=== PATIENT | female | born 1955 | race Caucasian/White ===

== ENCOUNTER 2018-07-27 05:25 | Day surgery (SDC) | payer BC ==
[2018-07-25 13:05] LABS: APPEARANCE,URINE CLEAR; BILIRUBIN,URINE NEGATIVE (NEGATIVE); COLOR,URINE YELLOW; GLUCOSE, URINE NEGATIVE (NEGATIVE); KETONES,URINE NEGATIVE (NEGATIVE); LEUKOCYTE ESTERASE,URINE TRACE (NEGATIVE); NITRITE,URINE NEGATIVE (NEGATIVE); PROTEIN,URINE NEGATIVE (NEGATIVE); URINE SPECIFIC GRAVITY 1.011; UROBILINOGEN,URINE NEGATIVE mg/dL (<2.0)
--- NOTE | 2018-07-25 13:14 | RADIOLOGY REPORT (SQ) ---
EXAM DESCRIPTION: CHEST PA/LATERAL COMPLETED DATE/TIME: 07/25/2018 12:31 pm REASON FOR STUDY: PRE-OP COMPARISON: None. TECHNIQUE: Frontal and lateral radiographic views of the chest acquired. NUMBER OF VIEWS: Two view. LIMITATIONS: None. FINDINGS: LUNGS AND PLEURA: No opacities, masses or pneumothorax. No pleural effusion. MEDIASTINUM AND HILAR STRUCTURES: No masses or contour abnormalities. HEART AND VASCULAR STRUCTURES: Heart normal size. No evidence for failure. BONES: No acute findings. HARDWARE: None in the chest. OTHER: No other significant finding. IMPRESSION: NO SIGNIFICANT RADIOGRAPHIC FINDING IN THE CHEST. TECHNICAL DOCUMENTATION: JOB ID: [id number] [employer]- All Rights Reserved Reading location - IP/workstation name: [email or web address]
[2018-07-25 13:19] LABS: HEMATOCRIT 43.7 % (36.0-47.0); HEMOGLOBIN 14.9 g/dL (12.0-15.5); MEAN CORPUSCULAR HEMOGLOBIN 28.9 pg (27.0-33.4); MEAN CORPUSCULAR VOLUME 85 fl (80-97); PLATELET COUNT 205 10^3/uL (150-450); RED BLOOD COUNT 5.16 10^6/uL (3.72-5.28); WHITE BLOOD COUNT 6.5 10^3/uL (4.0-10.5)
[2018-07-25 13:38] LABS: ANION GAP 8 (5-19); BLOOD UREA NITROGEN 16 mg/dL (7-20); CALCIUM 9.7 mg/dL (8.4-10.2); CARBON DIOXIDE 32 mmol/L (22-30); CHLORIDE 100 mmol/L (98-107); GLUCOSE 82 mg/dL (75-110); POTASSIUM 4.9 mmol/L (3.6-5.0); SODIUM 140.3 mmol/L (137-145)
--- NOTE | 2018-07-25 23:31 | EKG REPORT ---
SEVERITY:- NORMAL ECG - SINUS RHYTHM : Confirmed by: Noah Corley 25-Jul-2018 23:31:06
[~2018-07-27 05:25] MED LIST: CEFAZOLIN 1 GM/D5W RTU 1 GM/50 ML RTUPB IV ONE; CEFAZOLIN 1 GM/D5W RTU 1 GM/50 ML RTUPB IV PRN; LACTATED RINGERS 1000 ML IV PRN; LIDOCAINE 0.5% INJ-PF (5 MG/ML) 50 ML SDV SUBCUT PRN
[2018-07-27] MEDS ORDERED: ACETAMINOPHEN 1,000 MG/100 ML RTUPB IV ONE (07:07)
[2018-07-27] MEDS ORDERED: MIDAZOLAM 2 MG/2 ML INJ ONE (07:07)
[2018-07-27] MEDS ORDERED: DEXAMETHASONE SOD PHOSPHATE INJ 4 MG/1 ML VIAL ONE (07:07)
[2018-07-27] MEDS ORDERED: LIDOCAINE 2% INJ-PF (100 MG/5 ML) SYRINGE ONE (07:07)
[2018-07-27] MEDS ORDERED: FENTANYL CITRATE INJ/PF 100 MCG/2 ML AMPUL ONE (07:07)
[2018-07-27] MEDS ORDERED: ONDANSETRON HCL INJ/PF 4 MG/2 ML SDV ONE (07:07)
[2018-07-27] MEDS ORDERED: PROPOFOL INJ 200 MG/20 ML VIAL IV ONE (07:07)
[2018-07-27] MEDS ORDERED: LIDOCAINE 1% INJ-PF (10 MG/ML) 30 ML SDV ONE (07:28)
[2018-07-27] MEDS ORDERED: PROMETHAZINE HCL INJ 25 MG/1 ML VIAL IV PRN ×2 (07:44)
[2018-07-27] MEDS ORDERED: MEPERIDINE HCL/PF INJ 25 MG/1 ML DISP.SYRIN IV PRN (07:44)
[2018-07-27] MEDS ORDERED: ONDANSETRON HCL INJ/PF 4 MG/2 ML SDV IV PRN (07:44)
[2018-07-27] MEDS ORDERED: OXYCODONE-ACETAMINOPHEN 5-325 MG TABLET PO PRN ×2 (07:44→08:30)
[2018-07-27] MEDS ORDERED: DIPHENHYDRAMINE HCL 50 MG/ML VIAL IV PRN (07:44)
[2018-07-27] MEDS ORDERED: FENTANYL CITRATE INJ/PF 100 MCG/2 ML AMPUL IV PRN ×3 (07:44)
--- NOTE | 2018-07-27 08:18 | OPERATIVE REPORT E ---
Operative Report NAME: JATIN RANDALL : 1955 AGE: 62Y DATE OF SURGERY: 07/27/2018 ROOM: PREOPERATIVE DIAGNOSIS: Endometrial atypia, postmenopausal bleeding. POSTOPERATIVE DIAGNOSIS: Endometrial atypia, postmenopausal bleeding. OPERATION: Hysteroscopy, D and C, cervical biopsy. SURGEON: JAVIER VO M.D. ANESTHESIA: LMAC, paracervical block. COMPLICATIONS: None. FINDINGS: That of an exam compounded by obesity. Cervix was difficult to visualize. Paracervical block placed. Friable-appearing cervix was encountered. Normal endometrial cavity was encountered. No polyps or endometrial lesions were noted. No adnexal masses were discerned by EUA but exam was limited by size. The usual risks of bleeding, infection, anesthesia, and damage to the organs and tissues have been discussed and the patient understood. INDICATIONS FOR PROCEDURE: The patient had atypia noted on endometrial biopsy but it was attempted as an outpatient. A scant amount of material was obtained during the rather difficult exam so she elected to proceed to hysteroscopy. PROCEDURE: The patient was taken to the operating room and placed in the modified lithotomy position after adequate anesthesia ascertained, prepped and draped in the usual manner for a hysteroscopy. With great difficulty the cervix was identified. Paracervical block placed. Single-tooth tenaculum placed on the anterior lip of the cervix. Cervix was identified blindly and dilated to admit the operative hysteroscope. Hysteroscopy ensued. Normal cavity was encountered. Endometrial sampling was performed via suction device in a random fashion and cervical biopsies performed x3. No lesions noted in the cervix. No polyps were noted. At completion of procedure all sponge and needle counts were correct. The patient was taken to recovery in stable condition. Bleeding was nil. DICTATING PHYSICIAN: JAVIER VO M.D. [id number] PHY#: [id number] ID: [id number] JOB#: [id number] ACCT: [id number] cc:JAVIER VO M.D. >
[2018-07-27] MEDS ORDERED: MORPHINE INJ 4 MG DOSE (EDIT ROUTE) INJ PRN (08:30)
[2018-07-27] MEDS ORDERED: PROMETHAZINE HCL INJ 25 MG/1 ML VIAL IM PRN (08:30)
[2018-07-27 09:33] VITALS: BP 168/89
[2018-07-27] MEDS ORDERED: IBUPROFEN 800 MG TABLET PO SCH (14:00)
== END 2018-07-27 09:05 | disposition home or self-care (01) ==
LOC: OROUT 05:25 → EDBD 07:15 → OROUT 09:05
PROVIDERS: ATTEND Specialist
DX: C53.9 Malignant neoplasm of cervix uteri, unspecified (principal); C54.1 Malignant neoplasm of endometrium; N95.0 Postmenopausal bleeding; I10 Essential (primary) hypertension; E78.00 Pure hypercholesterolemia, unspecified; Z79.899 Other long term (current) drug therapy; Z79.82 Long term (current) use of aspirin; E66.9 Obesity, unspecified; Z68.41 Body mass index [BMI] 40.0-44.9, adult
CPT/HCPCS: 93005; 86900; 86901; 36415; 86850; 85027; 80048; 81001; 88342 ×2; 88341 ×2; 88305 ×2; 71046; 93010; 58558; J2250; J0690; J1100; J3010; J3490; J2001; J2405; J2704; J0131; 952

== ENCOUNTER 2018-09-19 09:56 | Day surgery (SDC) | payer BC ==
[~2018-09-19 09:56] MED LIST changes: +ACETAMINOPHEN 325 MG TABLET PO PRN; +DEXAMETHASONE SOD PHOSPHATE INJ 4 MG/1 ML VIAL ONE; +FENTANYL CITRATE INJ/PF 100 MCG/2 ML AMPUL ONE; -LACTATED RINGERS 1000 ML IV PRN; -LIDOCAINE 0.5% INJ-PF (5 MG/ML) 50 ML SDV SUBCUT PRN; +MIDAZOLAM 2 MG/2 ML INJ ONE; +ONDANSETRON HCL INJ/PF 4 MG/2 ML SDV ONE; +PROPOFOL INJ 200 MG/20 ML VIAL IV ONE
[2018-09-19] MEDS ORDERED: LIDOCAINE 1%/EPINEPHRINE INJ 20 ML VIAL ONE ×2 (10:32→11:27)
[2018-09-19 10:50] LABS: HEMATOCRIT 43.5 % (36.0-47.0); HEMOGLOBIN 14.4 g/dL (12.0-15.5); MEAN CORPUSCULAR HEMOGLOBIN 28.1 pg (27.0-33.4); MEAN CORPUSCULAR HGB CONC 33.1 g/dL (32.0-36.0); MEAN CORPUSCULAR VOLUME 85 fl (80-97); PLATELET COUNT 204 10^3/uL (150-450); RED BLOOD COUNT 5.12 10^6/uL (3.72-5.28); RED CELL DISTRIBUTION WIDTH 13.5 % (11.5-14.0); WHITE BLOOD COUNT 6.5 10^3/uL (4.0-10.5)
--- NOTE | 2018-09-19 11:45 | RADIOLOGY REPORT (SQ) ---
EXAM DESCRIPTION: CHEST SINGLE VIEW COMPLETED DATE/TIME: 09/19/2018 10:55 am REASON FOR STUDY: PREOP COMPARISON: 07/25/2018. EXAM PARAMETERS: NUMBER OF VIEWS: One view. TECHNIQUE: Single frontal radiographic view of the chest acquired. RADIATION DOSE: NA LIMITATIONS: None. FINDINGS: LUNGS AND PLEURA: No opacities, masses or pneumothorax. No pleural effusion. MEDIASTINUM AND HILAR STRUCTURES: No masses. Contour normal. HEART AND VASCULAR STRUCTURES: Heart normal in size. Normal vasculature. Aortic atherosclerosis. BONES: No acute findings. HARDWARE: None in the chest. OTHER: No other significant finding. IMPRESSION: No evidence of acute cardiopulmonary process. TECHNICAL DOCUMENTATION: JOB ID: [id number] [employer]- All Rights Reserved Reading location - IP/workstation name: [email or web address]
[2018-09-19] MEDS ORDERED: OXYCODONE-ACETAMINOPHEN 5-325 MG TABLET PO PRN (12:12)
[2018-09-19] MEDS ORDERED: MORPHINE SULFATE 10 MG/ML INJ IV PRN (12:12)
[2018-09-19] MEDS ORDERED: MEPERIDINE HCL/PF INJ 25 MG/1 ML DISP.SYRIN IV PRN (12:12)
[2018-09-19] MEDS ORDERED: DIPHENHYDRAMINE HCL 50 MG/ML VIAL IV PRN (12:12)
[2018-09-19] MEDS ORDERED: FENTANYL CITRATE INJ/PF 100 MCG/2 ML AMPUL IV PRN ×3 (12:12)
--- NOTE | 2018-09-19 12:18 | Operative Report ---
Operative Report DATE OF SURGERY: 09/19/18 PREOPERATIVE DIAGNOSIS: Stage IIIb cervical carcinoma POSTOPERATIVE DIAGNOSIS: Same OPERATION: 1. Right internal jugular vein portacatheter insertion ultrasound directed. 2. Intraoperative fluoroscopy. 3. Interpretation of intraoperative fluoroscopy. SURGEON: ESPERANZA BAILON ANESTHESIA: LMAC TISSUE REMOVED OR ALTERED: see below COMPLICATIONS: none ESTIMATED BLOOD LOSS: scant INTRAOPERATIVE FINDINGS: see below PROCEDURE: Patient was seen in preop holding area with the right neck was marked. She was then taken to the main operating room where LMAC anesthesia was induced. The neck was a rotated to the left, the right neck and right chest wall were prepped and draped in sterile fashion with the breast taped caudad. Surgical plan and surgical timeout were conducted. Using ultrasound real-time as a guide, the right internal jugular vein skin was anesthetized with 1% lidocaine., then a small braulio was made the skin with 11 blade, and a micro wire and needle were threaded into the right internal jugular vein under fluoroscopy guidance. Suitable site for placement of the right subclavian port was chosen. The skin was anesthetized 1% plain with lidocaine. A 3 and half centimeter incision was made in the right subclavian position, and a port pocket developed large enough to accommodate a single-chamber port using electrocautery and blunt dissection. The catheter was then trimmed to the appropriate length, tunneled between the 2 incisions, then attached to the port. The port ring and catheter were tucked into the right subclavian pocket. The micro wire switched over to a conventional 0.030 guidewire using the micro sheath. We now threaded the 9 Grenadian sheath and dilator over the conventional guidewire, the guidewire dilator removed, catheter threaded into the sheath of the sheath strip away leaving the catheter in good position. Fluoroscopic of the tip of the catheter was in the right atrium. There was no evidence of ectopy. There is no kinking of the catheter at the neck nor at the subclavian position. There was excellent aspiration and flush through the catheter. Wounds were closed with 3-0 Vicryl benzoin and Steri-Strips. Patient tolerated procedure well, taken to recovery room stable condition.
--- NOTE | 2018-09-19 12:21 | Discharge Summary ---
Discharge Summary (SDC) - Discharge Final Diagnosis: Stage IIIb cervical carcinoma Date of Surgery: 09/19/18 Discharge Date: 09/19/18 Condition: Good Treatment or Instructions: May shower in 48 hours; prescription provided for Toradol. May use catheter this week. Will up with [facility] in 1 to 2 weeks. Referrals: KATHI MOHR MD [Primary Care Provider] - Discharge Diet: As Tolerated Discharge Activity: Activity As Tolerated Home Care Assistance: None Needed Report the Following to Your Physician Immediately: Shortness of Breath, Increase in Pain, Fever over 101 Degrees
--- NOTE | 2018-09-19 13:56 | RADIOLOGY REPORT (SQ) ---
EXAM DESCRIPTION: FLUORO/CV PLACEMENT COMPLETED DATE/TIME: 09/19/2018 1:40 pm REASON FOR STUDY: PORTACATCH PLACEMENT RIGHT SIDE ASST W/ FLUORO IN OR COMPARISON: None. FLUOROSCOPY TIME: 0.1 minutes 4 images saved to PACS. TECHNIQUE: Intra-operative images acquired during surgical procedure to evaluate progress. NUMBER OF IMAGES: 4 images saved LIMITATIONS: None. FINDINGS: Limited fluoroscopic images obtained to evaluate progress. Final image demonstrates evide nce of right internal jugular chest port with tip at cavoatrial junction. Please see operative repor t for detailed description of procedure. IMPRESSION: IMAGE(S) OBTAINED DURING PROCEDURE. COMMENT: Quality ID [id number]: Final reports for procedures using fluoroscopy that document radiation exp osure indices, or exposure time and number of fluorographic images (if radiation exposure indices are not available) Please consult full operative report of the attending physician for description of the procedure. TECHNICAL DOCUMENTATION: JOB ID: [id number] [employer]- All Rights Reserved Reading location - IP/workstation name: [email or web address]
[2018-09-19 14:37] VITALS: BP 169/89
== END 2018-09-19 14:00 | disposition home or self-care (01) ==
LOC: OROUT 09:56
PROVIDERS: ATTEND Surgery
DX: C53.9 Malignant neoplasm of cervix uteri, unspecified (principal); I10 Essential (primary) hypertension; E78.00 Pure hypercholesterolemia, unspecified; F17.210 Nicotine dependence, cigarettes, uncomplicated; Z79.82 Long term (current) use of aspirin; Z79.899 Other long term (current) drug therapy
CPT/HCPCS: 36561; 36415; 85027; 71045; 77001; C1752; C1788; J2250; J0690; J1100; J3010; J3490; J2405; J2704; J1642; 532

== ENCOUNTER → 2018-10-05 | Outpatient (CLI) | payer BC ==
--- NOTE | 2018-10-05 10:40 | RADIOLOGY REPORT (SQ) ---
EXAM DESCRIPTION: INJECT VENOUS ACCESS DEVICE COMPLETED DATE/TIME: 10/05/2018 10:06 am REASON FOR STUDY: T82.598A [facility] COMPL OF CARDIAC AND VASCULAR DEVICES AND IMPLNT, INIT COMPARISON: Intraoperative port placement images from 09/19/2018 TECHNIQUE: Fluoroscopy was performed over the patient's right upper chest. Fluoroscopic images were obtained and saved to pac's. RADIATION DOSE: 0.5 minutes of fluoroscopy was used. 4 radiographic spot images were obtained and saved to pac's. LIMITATIONS: None. FINDINGS: An attempt was madeto access the patient's right upper chest MediPort by the radiology steve se. Multiple attempts were unsuccessful. Fluoroscopy of the port shows that the port has flipped wi thin the pocket and is now up side down. MediPort catheter appears intact and in proper position. IMPRESSION: PATIENT'S INDWELLING VENOUS ACCESS PORT HAS FLIPPED WITHIN THE SUBCUTANEOUS POCKET ON TH E RIGHT UPPER CHEST. SURGICAL INTERVENTION IS RECOMMENDED. COMMENT: Findings were discussed with Dr. Osborn's Nurse on 10/05/2018 at 1000 hours. TECHNICAL DOCUMENTATION: JOB ID: [id number] [employer]- All Rights Reserved Reading location - IP/workstation name: [email or web address]
== END ==
LOC: RAD 09:30
PROVIDERS: ATTEND Internal Medicine Hematology & Oncology
DX: T82.598A Other mechanical complication of other cardiac and vascular devices and implants, initial encounter (principal); T82.9XXA Unspecified complication of cardiac and vascular prosthetic device, implant and graft, initial encounter; X58.XXXA Exposure to other specified factors, initial encounter
CPT/HCPCS: 36598

== ENCOUNTER → 2018-10-25 | Outpatient (CLI) | payer BC ==
--- NOTE | 2018-10-26 09:12 | RADIOLOGY REPORT (SQ) ---
EXAM DESCRIPTION: MRI LUMBAR SPINE COMBO COMPLETED DATE/TIME: 10/25/2018 7:24 pm REASON FOR STUDY: C53.9 MALIGNANT NEOPLASM OF CERVIX UTERI, UNSPECIFIED C53.9 MALIGNANT NEOPLASM OF CERVIX UTERI, UNSPECIFIED COMPARISON: None. TECHNIQUE: Sagittal and Axial imaging includes T1, T1 post gadolinium, T2, STIR and gradient echo se quences. Coronal T2/HASTE imaging. CONTRAST TYPE AND DOSE: 10 mL Dotarem. RENAL FUNCTION: Not indicated. ACR Type II contrast agent associated with few, if any, unconfounded cases of NSF LIMITATIONS: Inferior most tip of the coccyx is outside the field of view FINDINGS: VISUALIZED UPPER ABDOMEN: 4 cm uterine fibroid is present at the bottom edge of the field of view. 2.5 cm left lower pole renal cortical cyst. SEGMENTATION: No transitional anatomy. The lowest well-developed disc space is labeled L5-S1. ALIGNMENT: Anatomic. VERTEBRAE: Intact. No fractures. BONE MARROW: Normal. No marrow replacement or reactive changes. DISC SIGNAL: Disc space loss of height at L2-3. Diffuse decreased T2 weighted intervertebral disc si gnal from L2-3 through L5-S1. POSTERIOR ELEMENTS: Generally intact. No pars defect evident. HARDWARE: None in the spine. CORD AND CONUS: Normal in size and signal intensity. Conus at the T12-L1 level. SOFT TISSUES: No aortic aneurysm seen. No bulky retroperitoneal adenopathy or mass. No paraspinal mas s or fluid. T11-12: Mild bilateral facet hypertrophy. No central or foraminal stenosis. T12-L1: Mild bilateral facet hypertrophy. No central or foraminal stenosis. L1-L2: Blxz-sz-xnojyvea bilateral facet hypertrophy. No central or foraminal stenosis. L2-L3: Broad diffuse posterior disc bulging is present with mild bilateral facet and ligament hypertr ophy. No central canal narrowing. Mild bilateral foraminal narrowing without exit L2 nerve root imp ingement. L3-L4: Mild diffuse posterior disc bulging, moderate bilateral facet and ligament hypertrophy causes borderline central canal narrowing. Mild bilateral inferior foraminal narrowing without exiting L3 n erve root impingement. L4-L5: Mild diffuse posterior disc bulging, moderate bilateral facet and ligament hypertrophy. Mild central canal narrowing is present with flattening of the thecal sac into a triangular shape on axial T2 image 22. There is mild to moderate bilateral inferior foraminal narrowing without exiting L4 ne rve root impingement. L5-S1: Mild diffuse posterior disc bulging, mild bilateral facet and ligament hypertrophy is present. No central stenosis. Mild right, moderate to marked left foraminal narrowing is present. No defin ite exit L5 nerve root impingement. SACRUM: Visualized upper sacrum intact. Coccyx is partially visualized. Distal most tip of the cocc yx is cropped from the field of view. ENHANCEMENT: No abnormal conus or nerve root enhancement. No disc margin enhancement worrisome for a cute annular tear OTHER: No other significant findings. IMPRESSION: Diffuse degenerative changes as above TECHNICAL DOCUMENTATION: JOB ID: [id number] [employer]- All Rights Reserved Reading location - IP/workstation name: [email or web address]
== END ==
LOC: RAD 18:00
PROVIDERS: ATTEND Internal Medicine Hematology & Oncology
DX: G90.09 Other idiopathic peripheral autonomic neuropathy (principal); C53.9 Malignant neoplasm of cervix uteri, unspecified
CPT/HCPCS: 82565; 72158; A9576

== ENCOUNTER 2018-10-28 12:11 | Inpatient (IN) | payer BC ==
[2018-10-28] MEDS ORDERED: NORMAL SALINE 1000 ML 1,000 ML IV ONE ×2 (12:29→15:53)
[2018-10-28 12:42] LABS: ABSOLUTE EOSINOPHILS # (AUTO) 0.1 10^3/uL (0.0-0.6); ABSOLUTE LYMPHOCYTES (AUTO) 0.6 10^3/uL (0.5-4.7); ABSOLUTE MONOCYTES (AUTO) 0.5 10^3/uL (0.1-1.4); ABSOLUTE NEUT (AUTO) 3.4 10^3/uL (1.7-8.2); EOSINOPHILS % (AUTO) 2.5 % (0-6); HEMATOCRIT 36.7 % (36.0-47.0); HEMOGLOBIN 12.6 g/dL (12.0-15.5); LYMPHOCYTES % (AUTO) 12.7 % (13-45); MEAN CORPUSCULAR HEMOGLOBIN 28.7 pg (27.0-33.4); MEAN CORPUSCULAR HGB CONC 34.3 g/dL (32.0-36.0); MEAN CORPUSCULAR VOLUME 84 fl (80-97); PLATELET COUNT 186 10^3/uL (150-450); RED BLOOD COUNT 4.39 10^6/uL (3.72-5.28); RED CELL DISTRIBUTION WIDTH 13.4 % (11.5-14.0); SEGMENTED NEUTROPHILS % (AUTO) 72.8 % (42-78); TOTAL CELLS COUNTED % (AUTO) 100 %; WHITE BLOOD COUNT 4.6 10^3/uL (4.0-10.5)
[2018-10-28 12:43] LABS: VENOUS BLOOD BASE EXCESS 0.5 mmol/L; VENOUS BLOOD HCO3 25.3 mmol/L (20-32); VENOUS BLOOD PCO2 41.4 mmHg (35-63); VENOUS BLOOD PH 7.4 (7.30-7.42)
[2018-10-28 12:46] LABS: INTERNATIONAL RATION (INR) 0.84; PROTHROMBIN TIME 11.9 SEC (11.4-15.4)
[2018-10-28 13:02] LABS: ALANINE AMINOTRANSFERASE 25 U/L (9-52); ALBUMIN 4.1 g/dL (3.5-5.0); ALKALINE PHOSPHATASE 62 U/L (38-126); ANION GAP 15 (5-19); ASPARTATE AMINO TRANSFERASE 42 U/L (14-36); BILIRUBIN,DIRECT 0.5 mg/dL (0.0-0.4); BILIRUBIN,TOTAL 0.7 mg/dL (0.2-1.3); BLOOD UREA NITROGEN 22 mg/dL (7-20); CARBON DIOXIDE 24 mmol/L (22-30); CHLORIDE 103 mmol/L (98-107); CREATINE KINASE 254 U/L (30-135); GLUCOSE 108 mg/dL (75-110); POTASSIUM 4.5 mmol/L (3.6-5.0); TOTAL PROTEIN 6.9 g/dL (6.3-8.2)
[2018-10-28] MEDS ORDERED: CEFTRIAXONE 1 GM/D5W RTU 1 GM/50 ML RTUPB IV ONE (13:05)
[2018-10-28 13:10] LABS: CREATINE KINASE MB 1.45 ng/mL (<4.55)
[2018-10-28 13:14] LABS: TROPONIN I < 0.012 ng/mL
--- NOTE | 2018-10-28 13:14 | RADIOLOGY REPORT (SQ) ---
EXAM DESCRIPTION: CHEST SINGLE VIEW COMPLETED DATE/TIME: 10/28/2018 1:05 pm REASON FOR STUDY: fever, SOB, chemo COMPARISON: 09/19/2018 EXAM PARAMETERS: NUMBER OF VIEWS: One view. TECHNIQUE: Single frontal radiographic view of the chest acquired. RADIATION DOSE: NA LIMITATIONS: None. FINDINGS: LUNGS AND PLEURA: No opacities, masses or pneumothorax. No pleural effusion. MEDIASTINUM AND HILAR STRUCTURES: No masses. Contour normal. HEART AND VASCULAR STRUCTURES: Heart normal in size. Normal vasculature. BONES: No acute findings. HARDWARE: None in the chest. OTHER: No other significant finding. IMPRESSION: NO ACUTE RADIOGRAPHIC FINDING IN THE CHEST. TECHNICAL DOCUMENTATION: JOB ID: [id number] [employer]- All Rights Reserved Reading location - IP/workstation name: [email or web address]
[2018-10-28 13:16] LABS: CALCIUM 6.6 mg/dL (8.4-10.2)
[2018-10-28] MEDS ORDERED: CALCIUM GLUCONATE 1000 MG/10 ML INJ IV ONE (13:23)
--- NOTE | 2018-10-28 15:04 | ER Document Report ---
Entered by YAZAN ELIZONDO SCRIBE 10/28/18 1400 Acting as scribe for:KATHY STEVENS DO ED General - General Chief Complaint: Nausea/Vomiting/Diarrhea Stated Complaint: NAUSEA, DIARRHEA Time Seen by Provider: 10/28/18 12:28 Mode of Arrival: Ambulatory Information source: Patient Notes: Patient is a 63 year old female with cervical cancer presents to the emergency department complaining of multiple symptoms including abdominal cramping, nausea, vomiting and diarrhea. Patient states has had diarrhea since her radiation appointment on September 24, 2018. She states the diarrhea has not improved or worsened but states today she developed muscle cramping and had an episode of fecal incontinence while sitting in a chair. She states she took a dose of Imodium prior to arrival to the emergency department. She does report some blood in stool but attributes this to a recent surgery for possible brachytherapy. She denies any current shortness of breath, trouble breathing, coughs or chills. Patient's oncologist is Dr. Osborn who is aware that she is here. TRAVEL OUTSIDE OF THE [place] IN LAST 30 DAYS: No - Related Data Allergies/Adverse Reactions: No Known Allergies Allergy (Verified 10/28/18 12:14) Past Medical History - General Information source: Patient - Social History Smoking Status: Former Smoker - quit in 2001 Cigarette use (# per day): No Chew tobacco use (# tins/day): No Smoking Education Provided: No Frequency of alcohol use: None Drug Abuse: None Lives with: Family Family History: Reviewed & Not Pertinent - Past Medical History Cardiac Medical History: Reports: Hx Hypertension Musculoskeletal Medical History: Reports Hx Arthritis - RIGHT THUMB - Immunizations Hx Diphtheria, Pertussis, Tetanus Vaccination: No - UNSURE Review of Systems - Review of Systems Constitutional: No symptoms reported EENT: No symptoms reported Cardiovascular: No symptoms reported Respiratory: No symptoms reported Gastrointestinal: See HPI, Abdominal pain, Diarrhea, Nausea, Vomiting Genitourinary: No symptoms reported Female Genitourinary: No symptoms reported Musculoskeletal: See HPI Skin: No symptoms reported Hematologic/Lymphatic: No symptoms reported Neurological/Psychological: No symptoms reported -: Yes All other systems reviewed and negative Physical Exam - Vital signs Vitals: Temp Pulse Resp BP Pulse Ox 97.7 F 85 20 169/96 H 94 10/28/18 12:14 10/28/18 12:14 10/28/18 12:14 10/28/18 12:14 10/28/18 12:14 - Notes Notes: GENERAL: Alert, interacts well. No acute distress. HEAD: Normocephalic, atraumatic. EYES: Pupils equal, round, and reactive to light. Extraocular movements intact. ENT: Oral mucosa moist, tongue midline. NECK: Full range of motion. Supple. Trachea midline. LUNGS: Clear to auscultation bilaterally, no wheezes, rales, or rhonchi. No respiratory distress. HEART: Regular rate and rhythm. No murmurs, gallops, or rubs. ABDOMEN: Soft, non-tender. Non-distended. Bowel sounds present in all 4 quadrants. No guarding, rigidity, or rebound. EXTREMITIES: Moves all 4 extremities spontaneously. No edema, radial and dorsalis pedis pulses 2/4 bilaterally. No cyanosis. Cramping of left arm when the blood pressure cuff compresses. NEUROLOGICAL: Alert and oriented x3. Normal speech. PSYCH: Normal affect, normal mood. SKIN: Warm, mildly diaphoretic. Course - Re-evaluation Re-evalutation: 10/28/18 14:32 Consulted oncologist, Dr. Osborn, who agrees with plan to admit patient. 10/28/18 14:34 Sara Nova, GLASS DESIGNER accepts the patient for admission. 10/28/18 15:00 CBC unremarkable, coags normal, venous blood gas unremarkable, CMP shows acute renal failure with a BUN of 22 and creatinine 1.67, lactic acid is elevated at 5.5, IV fluids have been initiated, calcium is low at 6.6, magnesium level is 0.7, potassium is normal, patient does have symptoms of hypocalcemia with spasming of her left arm every time we put on a tourniquet or the blood pressure cuff inflates. Patient is being given magnesium and calcium as well as IV fluids. Patient is being given an empiric dose of Rocephin in case this represents occult bacteremia. C. difficile has been ordered but she has not had a bowel movement. Chest x-ray is unremarkable. Patient was discussed with Sara Nova and Dr. Perdomo, Sara Nova has agreed to admit the patient to the hospital. 10/28/18 15:01 I did insert an ultrasound-guided IV into the left upper extremity just above the antecubital fossa with good flash but no ability to draw back blood, flushes well, no pain. It is an 18-gauge Angiocath. Patient tolerated the procedure well. - Vital Signs Vital signs: Temp Pulse Resp BP Pulse Ox 97.9 F 87 17 166/68 H 96 10/28/18 12:19 10/28/18 15:50 10/28/18 17:46 10/28/18 17:31 10/28/18 17:46 - Laboratory Result Diagrams: 10/28/18 12:25 10/28/18 12:25 Laboratory results interpreted by me: 10/28/18 10/28/18 10/28/18 12:25 12:25 12:25 Lymphocytes % 12.7 L BUN 22 H Creatinine 1.67 H Est GFR ( Amer) 38 L Est GFR (Non-Af Amer) 31 L Lactic Acid 5.5 H Calcium 6.6 L* Magnesium 0.7 L* Direct Bilirubin 0.5 H AST 42 H Creatine Kinase 254 H - EKG Interpretation by Me Additional EKG results interpreted by me: 10/28/18 15:01 EKG shows sinus rhythm at a rate of 99, borderline prolonged QT interval, normal axis, no ST segment elevations or depressions, no abnormal T wave inversions per my interpretation. Discharge - Discharge Clinical Impression: Chronic diarrhea, Hypocalcemia, Hypomagnesemia, Muscle cramping Acute renal failure Qualifiers: Acute renal failure type: unspecified Qualified Code(s): N17.9 - Acute kidney failure, unspecified Condition: Fair Disposition: ADMITTED INPATIENT Admitting Provider: Mary (Hospitalist) Unit Admitted: Telemetry I personally performed the services described in the documentation, reviewed and edited the documentation which was dictated to the scribe in my presence, and it accurately records my words and actions.
[2018-10-28] MEDS: MAGNESIUM SULFATE/D5W 1 GM/100 ML RTUPB IV SCH ×4 (15:44→21:02)
[2018-10-28] MEDS ORDERED: PROMETHAZINE HCL INJ 25 MG/1 ML VIAL IV PRN (15:47)
[2018-10-28] MEDS ORDERED: ALBUTEROL SULFATE 0.083% NEB 2.5 MG/3 ML AMPUL NEB PRN (15:47)
[2018-10-28] MEDS ORDERED: MAG HYDROX/AL HYDROX/SIMETH SUSP 30 ML UDCUP PO PRN (15:47)
[2018-10-28] MEDS ORDERED: ACETAMINOPHEN 325 MG TABLET PO PRN (15:47)
[2018-10-28] MEDS ORDERED: ONDANSETRON HCL INJ/PF 4 MG/2 ML SDV IV PRN (15:47)
--- NOTE | 2018-10-28 16:10 | PDOC H&P ---
History of Present Illness Admission Date/PCP: 10/28/18 15:19 LEE OSBORN MD Patient complains of: muscle cramps History of Present Illness: JATIN RANDALL is a 63 year old female with a past medical history significant for hypertension, hyperlipidemia, morbid obesity, and cervical cancer currently receiving chemo and radiation treatment under the care of Dr. Osborn who presents today with a complaint of 2 months of daily diarrhea bowel movements (greater than 12 each day), poor appetite, nausea, and muscle cramps. She reports that an episode of stool incontinence associated with muscle cramps is what prompted her to present to the emergency department today. She denies fever, chills, chest pain, palpitations, dyspnea, orthopnea, and urinary symptoms. She denies sick contacts or suspicious meals. Evaluation in the emergency department reveals a normal CBC, Coag panel, blood gas, but does demonstrate acute kidney injury with a creatinine of 1.67, BUN 22, calcium 6.6, magnesium 0.7, and a lactic acid elevated to 5.5. Chest x-ray and EKG are benign. Urinalysis is pending. She is referred to the hospitalist service for admission and management of the above stated complaints and findings. Past Medical History Cardiac Medical History: Reports: Hyperlipidema, Hypertension Denies: Coronary Artery Disease, Myocardial Infarction Pulmonary Medical History: Reports: None EENT Medical History: Reports: None Neurological Medical History: Reports: None Endocrine Medical History: Reports: Obesity Renal/ Medical History: Reports: None Malignancy Medical History: Reports: Cervical Cancer GI Medical History: Reports: None Musculoskeltal Medical History: Reports: Arthritis Skin Medical History: Reports: None Psychiatric Medical History: Reports: Depression, General Anxiety Disorder Traumatic Medical History: Reports: None Hematology: Reports: None Infectious Medical History: Reports: None Past Surgical History Past Surgical History: Reports: Tubal Ligation Social History Information Source: Patient Lives with: Family Smoking Status: Former Smoker - quit in 2001 Number of Years Smokin Frequency of Alcohol Use: None Hx Recreational Drug Use: No Hx Prescription Drug Abuse: No - Advance Directive Resuscitation Status: Full Code Family History Family History: Reviewed & Not Pertinent Parental Family History Reviewed: Yes Children Family History Reviewed: Yes Sibling(s) Family History Reviewed.: Yes Medication/Allergy Home Medications: Meloxicam [Mobic] 15 mg PO DAILY 07/25/18 Metoprolol Tartrate [Lopressor] 50 mg PO QHS 07/25/18 Simvastatin [Zocor 40 mg Tablet] 40 mg PO QHS 07/25/18 Venlafaxine HCl [Effexor 75 mg Tablet] 75 mg PO DAILY 07/25/18 Aspirin [Lo-Dose Aspirin EC] 81 mg PO DAILY 09/17/18 Cholestyramine/Aspartame [Prevalite Packet] 4 gm PO BIDP PRN 10/28/18 Lorazepam [Ativan 0.5 mg Tablet] 0.5 mg PO Q6HP PRN MDD filled 10/16 for 8 day supply 10/28/18 Ondansetron HCl [Zofran 8 mg Tablet] 8 mg PO Q8HP PRN MDD filled 09/24 for 20 day supply 10/28/18 Allergies/Adverse Reactions: No Known Allergies Allergy (Verified 10/28/18 12:14) Review of Systems Constitutional: PRESENT: anorexia, fatigue, weakness. ABSENT: chills, fever(s), headache(s), weight gain, weight loss Eyes: ABSENT: visual disturbances Ears: ABSENT: hearing changes Cardiovascular: ABSENT: chest pain, dyspnea on exertion, edema, orthropnea, palpitations Respiratory: ABSENT: cough, hemoptysis Gastrointestinal: PRESENT: diarrhea, nausea. ABSENT: abdominal pain, constipation, hematemesis, hematochezia, vomiting Genitourinary: ABSENT: dysuria, hematuria Musculoskeletal: ABSENT: joint swelling Integumentary: ABSENT: rash, wounds Neurological: PRESENT: other - Muscle cramps. ABSENT: abnormal gait, abnormal speech, confusion, dizziness, focal weakness, syncope Psychiatric: ABSENT: anxiety, depression, homidical ideation, suicidal ideation Endocrine: ABSENT: cold intolerance, heat intolerance, polydipsia, polyuria Hematologic/Lymphatic: ABSENT: easy bleeding, easy bruising Physical Exam Vital Signs: Temp Pulse Resp BP Pulse Ox 97.9 F 150 H 32 H 108/60 99 10/28/18 12:19 10/28/18 12:19 10/28/18 12:19 10/28/18 12:10/28/18 12:19 Intake & Output 10/27/18 10/28/18 10/29/18 06:59 06:59 06:59 Intake Total 1050 Balance 1050 Weight 95.3 kg General appearance: PRESENT: no acute distress, morbidly obese, well-developed, well-nourished Head exam: PRESENT: atraumatic, normocephalic Eye exam: PRESENT: conjunctiva pink, EOMI, PERRLA. ABSENT: scleral icterus Ear exam: PRESENT: normal external ear exam Mouth exam: PRESENT: moist, tongue midline Neck exam: ABSENT: carotid bruit, JVD, lymphadenopathy, thyromegaly Respiratory exam: PRESENT: clear to auscultation corazon, symmetrical, unlabored. ABSENT: rales, rhonchi, wheezes Cardiovascular exam: PRESENT: RRR, +S1, +S2. ABSENT: diastolic murmur, rubs, systolic murmur Pulses: PRESENT: normal dorsalis pedis pul Vascular exam: PRESENT: normal capillary refill GI/Abdominal exam: PRESENT: normal bowel sounds, soft. ABSENT: distended, guarding, mass, organolmegaly, rebound, tenderness Rectal exam: PRESENT: deferred Extremities exam: PRESENT: full ROM. ABSENT: calf tenderness, clubbing, pedal edema Neurological exam: PRESENT: alert, awake, oriented to person, oriented to place, oriented to time, oriented to situation, CN II-XII grossly intact. ABSENT: motor sensory deficit Psychiatric exam: PRESENT: appropriate affect, normal mood. ABSENT: homicidal ideation, suicidal ideation Skin exam: PRESENT: dry, intact, warm. ABSENT: cyanosis, rash Results Laboratory Results: 10/28/18 12:25 10/28/18 12:25 10/28/18 10/28/18 10/28/18 12:25 12:25 12:25 WBC 4.6 RBC 4.39 Hgb 12.6 Hct 36.7 MCV 84 MCH 28.7 MCHC 34.3 RDW 13.4 Plt Count 186 Seg Neutrophils % 72.8 Lymphocytes % 12.7 L Monocytes % 11.0 Eosinophils % 2.5 Basophils % 1.0 Absolute Neutrophils 3.4 Absolute Lymphocytes 0.6 Absolute Monocytes 0.5 Absolute Eosinophils 0.1 Absolute Basophils 0.0 VBG pH VBG pCO2 VBG HCO3 VBG Base Excess Sodium 142.0 Potassium 4.5 Chloride 103 Carbon Dioxide 24 Anion Gap 15 BUN 22 H Creatinine 1.67 H Est GFR ( Amer) 38 L Est GFR (Non-Af Amer) 31 L Glucose 108 Lactic Acid 5.5 H Calcium 6.6 L* Magnesium 0.7 L* Total Bilirubin 0.7 AST 42 H ALT 25 Alkaline Phosphatase 62 Total Protein 6.9 Albumin 4.1 Lipase 67.0 10/28/18 12:25 WBC RBC Hgb Hct MCV MCH MCHC RDW Plt Count Seg Neutrophils % Lymphocytes % Monocytes % Eosinophils % Basophils % Absolute Neutrophils Absolute Lymphocytes Absolute Monocytes Absolute Eosinophils Absolute Basophils VBG pH 7.40 VBG pCO2 41.4 VBG HCO3 25.3 VBG Base Excess 0.5 Sodium Potassium Chloride Carbon Dioxide Anion Gap BUN Creatinine Est GFR ( Amer) Est GFR (Non-Af Amer) Glucose Lactic Acid Calcium Magnesium Total Bilirubin AST ALT Alkaline Phosphatase Total Protein Albumin Lipase 10/28/18 10/28/18 12:25 12:25 Creatine Kinase 254 H CK-MB (CK-2) 1.45 Troponin I < 0.012 Impressions: Chest X-Ray 10/28/18 12:29 IMPRESSION: NO ACUTE RADIOGRAPHIC FINDING IN THE CHEST. Assessment and Plan - Diagnosis (1) Acute renal failure Qualifiers: Acute renal failure type: unspecified Qualified Code(s): N17.9 - Acute kidney failure, unspecified Is this a current diagnosis for this admission?: Yes Plan: Prerenal secondary to poor p.o. intake and GI losses. Patient is admitted with a creatinine of 1.67 baseline is 0.72. She has already received 1 L normal saline bolus by the ED provider. We will continue to provide generous IV fluids. Avoid nephrotoxic medications as able. Daily chemistries. (2) Chronic diarrhea Is this a current diagnosis for this admission?: Yes Plan: Patient reports that onset of diarrhea coincides with beginning of radiation tr eatments. Has been present for 2 months; symptoms are unchanged other than one episode of stool incontinence today. Reassurance provided. Stool culture pending. No indications for antibiotics at this time. (3) Hypocalcemia Is this a current diagnosis for this admission?: Yes Plan: Calcium 6.6. Albumin is normal at 4.1. Secondary to poor p.o. intake and GI losses. She has already been provided 1 g calcium gluconate by the ED provider. We will check phosphorus and repeat chemistry in the morning. Continue replace as indicated. (4) Hypomagnesemia Is this a current diagnosis for this admission?: Yes Plan: Magnesium 0.7. Secondary to poor p.o. intake and GI losses. She has already received 2 g IV by the ED provider. We will provide an additional 2 g IV. Repeat magnesium in the morning and continue to replace as indicated. (5) Muscle cramping Is this a current diagnosis for this admission?: Yes Plan: Secondary to TORI and electrolyte derangement. Management as above. (6) Cervical cancer Is this a current diagnosis for this admission?: Yes Plan: Scheduled for radiation treatment tomorrow. Have consulted Dr. Osborn; management per her expertise. (7) Hypertension Qualifiers: Hypertension type: essential hypertension Qualified Code(s): I10 - E ssential (primary) hypertension Is this a current diagnosis for this admission?: Yes Plan: Continue home dose metoprolol. (8) Hyperlipidemia Is this a current diagnosis for this admission?: Yes Plan: Continue home dose statin therapy. - Time Time Spent with patient: 35 or more minutes Medications reviewed and adjusted accordingly: Yes Anticipated discharge: Home Within: within 48 hours
[2018-10-28 17:04] LABS: APPEARANCE,URINE SLIGHTLY-CLOUDY; BILIRUBIN,URINE NEGATIVE (NEGATIVE); COLOR,URINE YELLOW; GLUCOSE, URINE NEGATIVE (NEGATIVE); KETONES,URINE NEGATIVE (NEGATIVE); LEUKOCYTE ESTERASE,URINE MODERATE (NEGATIVE); NITRITE,URINE NEGATIVE (NEGATIVE); PROTEIN,URINE 30 mg/dL (NEGATIVE); URINE SPECIFIC GRAVITY 1.014; UROBILINOGEN,URINE NEGATIVE mg/dL (<2.0)
[2018-10-28] MEDS ORDERED: MAGNESIUM SULFATE/D5W 1 GM/100 ML RTUPB IV ONE ×2 (18:05→20:58)
--- NOTE | 2018-10-28 18:40 | EKG REPORT ---
SEVERITY:- BORDERLINE ECG - SINUS RHYTHM BORDERLINE PROLONGED QT INTERVAL : Confirmed by: Daniela Harrell MD 28-Oct-2018 18:40:03
[2018-10-28] MEDS: NORMAL SALINE 1000 ML 1,000 ML IV PRN ×2 (19:00→23:15)
[2018-10-28] MEDS: FAMOTIDINE 20 MG TABLET PO SCH (21:06)
[2018-10-28] MEDS: SIMVASTATIN 40 MG TABLET PO SCH (21:06)
[2018-10-28] MEDS: METOPROLOL TARTRATE 50 MG TABLET PO SCH (21:06)
[2018-10-28] MEDS: HEPARIN SOD (PORCINE) 5,000 UNIT/ML 1 ML SYRINGE SUBCUT SCH (21:07)
[2018-10-29] MEDS: NORMAL SALINE 1000 ML 1,000 ML IV PRN ×2 (03:25→16:10)
[2018-10-29 05:05] LABS: ABSOLUTE EOSINOPHILS # (AUTO) 0.1 10^3/uL (0.0-0.6); ABSOLUTE LYMPHOCYTES (AUTO) 0.2 10^3/uL (0.5-4.7); ABSOLUTE MONOCYTES (AUTO) 0.3 10^3/uL (0.1-1.4); BASOPHILS % (AUTO) 0.7 % (0-2); EOSINOPHILS % (AUTO) 3.2 % (0-6); HEMATOCRIT 30.5 % (36.0-47.0); LYMPHOCYTES % (AUTO) 8.8 % (13-45); MEAN CORPUSCULAR HEMOGLOBIN 28.4 pg (27.0-33.4); MEAN CORPUSCULAR HGB CONC 34.3 g/dL (32.0-36.0); MEAN CORPUSCULAR VOLUME 83 fl (80-97); PLATELET COUNT 124 10^3/uL (150-450); RED BLOOD COUNT 3.69 10^6/uL (3.72-5.28); RED CELL DISTRIBUTION WIDTH 13.4 % (11.5-14.0); SEGMENTED NEUTROPHILS % (AUTO) 76.3 % (42-78); TOTAL CELLS COUNTED % (AUTO) 100 %
[2018-10-29 05:06] LABS: HEMOGLOBIN 10.5 g/dL (12.0-15.5); WHITE BLOOD COUNT 2.6 10^3/uL (4.0-10.5)
[2018-10-29 05:07] LABS: ALANINE AMINOTRANSFERASE 17 U/L (9-52); ALKALINE PHOSPHATASE 43 U/L (38-126); ANION GAP 7 (5-19); ASPARTATE AMINO TRANSFERASE 30 U/L (14-36); BILIRUBIN,DIRECT 0.4 mg/dL (0.0-0.4); BILIRUBIN,TOTAL 0.4 mg/dL (0.2-1.3); BLOOD UREA NITROGEN 16 mg/dL (7-20); CARBON DIOXIDE 27 mmol/L (22-30); CHLORIDE 105 mmol/L (98-107); GLUCOSE 101 mg/dL (75-110); PHOSPHORUS 3.7 mg/dL (2.5-4.5); SODIUM 139.3 mmol/L (137-145); TOTAL PROTEIN 5.2 g/dL (6.3-8.2)
[2018-10-29 05:13] LABS: POTASSIUM 2.9 mmol/L (3.6-5.0)
[2018-10-29] MEDS: HEPARIN SOD (PORCINE) 5,000 UNIT/ML 1 ML SYRINGE SUBCUT SCH ×3 (05:14→21:03)
[2018-10-29] MEDS ORDERED: POTASSIUM CHLORIDE 10 MEQ CAPSULE.ER PO ONE (06:00)
[2018-10-29] MEDS ORDERED: CALCIUM GLUCONATE 2,000 MG in DEXTROSE 5%-WATER 100 ML IV ONE ×2 (06:00→14:00)
[2018-10-29] MEDS: POTASSIUM CHLORIDE 20 MEQ/50 ML RTU IV SCH ×2 (06:10→12:30)
--- NOTE | 2018-10-29 08:37 | PDOC CONSULTATION ---
Consultation Consult Date: 10/29/18 Provider Consulted: LEE RAMACHANDRAN Consult reason:: Hematology/Oncology consultation was requested for patient on active chemo and radiation for cervical [employer] cancer. History of Present Illness Admission Date/PCP: 10/28/18 15:19 KATHI MOHR MD History of Present Illness: JATIN RANDALL is a 63 year old female who was diagnosed with Stage IIB cervical cancer 08/31/2018. She is currently undergoing curative therapy with concurrent radiation and cisplatin (weekly). She is scheduled to finish this treatment on 10/31/2018. She has been seeing Dr. Greg Bustamante for [employer] ONC. She has been having diarrhea with these treatment which has been resistant to imodium, lomotil and questran. It is thought that the diarrhea is secondary to radiation/Chemo irritation. However, yesterday, she suddenly developed severe muscle cramping and pain. She presented to the ED and was found to have dehydration with acute renal insufficiency, potassium was normal, but Mag was 0.7. She has been admitted for fluids and electrolytes. This morning her potassium is 2.9. She states that she is feeling better than yesterday, but her stomach has not been able to tolerate anything to eat. Past Medical History Cardiac Medical History: Reports: Hyperlipidema, Hypertension Denies: Coronary Artery Disease, Myocardial Infarction Pulmonary Medical History: Reports: None Denies: Asthma, Bronchitis, Chronic Obstructive Pulmonary Disease (COPD), Pneumonia EENT Medical History: Reports: None Neurological Medical History: Reports: None Denies: Seizures Endocrine Medical History: Reports: Obesity Renal/ Medical History: Reports: None Malignancy Medical History: Reports: Cervical Cancer GI Medical History: Reports: None Musculoskeltal Medical History: Reports: Arthritis - RIGHT THUMB Skin Medical History: Reports: None Psychiatric Medical History: Reports: Depression, General Anxiety Disorder Traumatic Medical History: Reports: None Hematology: Reports: None Denies: Anemia Infectious Medical History: Reports: None Past Surgical History Past Surgical History: Reports: Tubal Ligation, Other - Cervical and endometrial biopsy, Port placement and removal. 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 1 Son. - Advance Directive Resuscitation Status: Full Code Family History Parental Family History Reviewed: Yes - Mother ided [place] at age 82. Father by suicide. Children Family History Reviewed: Yes - Son with NHL Sibling(s) Family History Reviewed.: Yes - Sister and Brother with COPD. Medication/Allergy Home Medications: Meloxicam [Mobic] 15 mg PO DAILY 07/25/18 Metoprolol Tartrate [Lopressor] 50 mg PO QHS 07/25/18 Simvastatin [Zocor 40 mg Tablet] 40 mg PO QHS 07/25/18 Venlafaxine HCl [Effexor 75 mg Tablet] 75 mg PO DAILY 07/25/18 Aspirin [Lo-Dose Aspirin EC] 81 mg PO QHS 09/17/18 Ondansetron HCl [Zofran 8 mg Tablet] 8 mg PO Q8HP PRN MDD filled 09/24 for 20 day supply 10/28/18 Allergies/Adverse Reactions: No Known Allergies Allergy (Verified 10/28/18 12:14) Review of Systems Constitutional: ABSENT: fever(s), headache(s) Eyes: ABSENT: visual disturbances Ears: ABSENT: hearing changes Nose, Mouth, and Throat: ABSENT: sore throat Cardiovascular: ABSENT: chest pain Respiratory: ABSENT: dyspnea Gastrointestinal: PRESENT: abdominal pain, diarrhea, nausea Genitourinary: ABSENT: dysuria Musculoskeletal: PRESENT: other - Sacral pain. Neurological: PRESENT: other - As per HPI Psychiatric: ABSENT: anxiety Hematologic/Lymphatic: ABSENT: lymphadenopathy Physical Exam Vital Signs: Temp Pulse Resp BP Pulse Ox 98.7 F 71 17 129/55 H 94 10/29/18 00:05 10/29/18 00:05 10/29/18 00:05 10/29/18 00:05 10/29/18 00:05 Intake & Output 10/28/18 10/29/18 10/30/18 06:59 06:59 06:59 Intake Total 4450 Balance 4450 Weight 99.1 kg General appearance: PRESENT: no acute distress, well-developed Exam: Overweight, female. Head exam: PRESENT: normocephalic Eye exam: PRESENT: EOMI, PERRLA Mouth exam: PRESENT: tongue midline Neck exam: ABSENT: lymphadenopathy, tenderness Respiratory exam: PRESENT: clear to auscultation corazon, unlabored Cardiovascular exam: PRESENT: RRR Pulses: PRESENT: normal dorsalis pedis pul GI/Abdominal exam: PRESENT: soft. ABSENT: tenderness Extremities exam: ABSENT: pedal edema Neurological exam: PRESENT: alert, awake, oriented to person, oriented to place, oriented to time, oriented to situation Psychiatric exam: PRESENT: appropriate affect Skin exam: PRESENT: normal color Results Laboratory Results: 10/29/18 04:30 10/29/18 04:30 10/28/18 10/28/18 10/28/18 12:25 12:25 12:25 WBC 4.6 RBC 4.39 Hgb 12.6 Hct 36.7 MCV 84 MCH 28.7 MCHC 34.3 RDW 13.4 Plt Count 186 Seg Neutrophils % 72.8 Lymphocytes % 12.7 L Monocytes % 11.0 Eosinophils % 2.5 Basophils % 1.0 Absolute Neutrophils 3.4 Absolute Lymphocytes 0.6 Absolute Monocytes 0.5 Absolute Eosinophils 0.1 Absolute Basophils 0.0 VBG pH VBG pCO2 VBG HCO3 VBG Base Excess Sodium 142.0 Potassium 4.5 Chloride 103 Carbon Dioxide 24 Anion Gap 15 BUN 22 H Creatinine 1.67 H Est GFR ( Amer) 38 L Est GFR (Non-Af Amer) 31 L Glucose 108 Lactic Acid 5.5 H Calcium 6.6 L* Phosphorus Magnesium 0.7 L* Total Bilirubin 0.7 AST 42 H ALT 25 Alkaline Phosphatase 62 Total Protein 6.9 Albumin 4.1 Lipase 67.0 TSH Urine Color Urine Appearance Urine pH Ur Specific [place] Urine Protein Urine Glucose (UA) Urine Ketones Urine Blood Urine Nitrite Ur Leukocyte Esterase Urine WBC (Auto) Urine RBC (Auto) Stool Occult Blood 10/28/18 10/28/18 10/29/18 12:25 16:13 03:30 WBC RBC Hgb Hct MCV MCH MCHC RDW Plt Count Seg Neutrophils % Lymphocytes % Monocytes % Eosinophils % Basophils % Absolute Neutrophils Absolute Lymphocytes Absolute Monocytes Absolute Eosinophils Absolute Basophils VBG pH 7.40 VBG pCO2 41.4 VBG HCO3 25.3 VBG Base Excess 0.5 Sodium Potassium Chloride Carbon Dioxide Anion Gap BUN Creatinine Est GFR ( Amer) Est GFR (Non-Af Amer) Glucose Lactic Acid Calcium Phosphorus Magnesium Total Bilirubin AST ALT Alkaline Phosphatase Total Protein Albumin Lipase TSH Urine Color YELLOW Urine Appearance SLIGHTLY-CLOUDY Urine pH 5.0 Ur Specific [place] 1.014 Urine Protein 30 H Urine Glucose (UA) NEGATIVE Urine Ketones NEGATIVE Urine Blood LARGE H Urine Nitrite NEGATIVE Ur Leukocyte Esterase MODERATE H Urine WBC (Auto) 40 Urine RBC (Auto) 8 Stool Occult Blood NEGATIVE 10/29/18 10/29/18 10/29/18 04:30 04:30 04:30 WBC 2.6 L D RBC 3.69 L Hgb 10.5 L D Hct 30.5 L MCV 83 MCH 28.4 MCHC 34.3 RDW 13.4 Plt Count 124 L Seg Neutrophils % 76.3 Lymphocytes % 8.8 L Monocytes % 11.0 Eosinophils % 3.2 Basophils % 0.7 Absolute Neutrophils 2.0 Absolute Lymphocytes 0.2 L Absolute Monocytes 0.3 Absolute Eosinophils 0.1 Absolute Basophils 0.0 VBG pH VBG pCO2 VBG HCO3 VBG Base Excess Sodium 139.3 Potassium 2.9 L* D Chloride 105 Carbon Dioxide 27 Anion Gap 7 BUN 16 Creatinine 1.29 H Est GFR ( Amer) 51 L Est GFR (Non-Af Amer) 42 L Glucose 101 Lactic Acid 1.5 Calcium 6.0 L* Phosphorus 3.7 Magnesium 1.4 L Total Bilirubin 0.4 AST 30 ALT 17 Alkaline Phosphatase 43 Total Protein 5.2 L Albumin 3.0 L Lipase TSH Urine Color Urine Appearance Urine pH Ur Specific [place] Urine Protein Urine Glucose (UA) Urine Ketones Urine Blood Urine Nitrite Ur Leukocyte Esterase Urine WBC (Auto) Urine RBC (Auto) Stool Occult Blood 10/29/18 04:30 WBC RBC Hgb Hct MCV MCH MCHC RDW Plt Count Seg Neutrophils % Lymphocytes % Monocytes % Eosinophils % Basophils % Absolute Neutrophils Absolute Lymphocytes Absolute Monocytes Absolute Eosinophils Absolute Basophils VBG pH VBG pCO2 VBG HCO3 VBG Base Excess Sodium Potassium Chloride Carbon Dioxide Anion Gap BUN Creatinine Est GFR ( Amer) Est GFR (Non-Af Amer) Glucose Lactic Acid Calcium Phosphorus Magnesium Total Bilirubin AST ALT Alkaline Phosphatase Total Protein Albumin Lipase TSH 4.47 Urine Color Urine Appearance Urine pH Ur Specific [place] Urine Protein Urine Glucose (UA) Urine Ketones Urine Blood Urine Nitrite Ur Leukocyte Esterase Urine WBC (Auto) Urine RBC (Auto) Stool Occult Blood 10/28/18 10/28/18 12:25 12:25 Creatine Kinase 254 H CK-MB (CK-2) 1.45 Troponin I < 0.012 Impressions: Chest X-Ray 10/28/18 12:29 IMPRESSION: NO ACUTE RADIOGRAPHIC FINDING IN THE CHEST. Assessment & Plan - Diagnosis (1) Cervical cancer Is this a current diagnosis for this admission?: Yes (2) Dehydration Is this a current diagnosis for this admission?: Yes Plan: Due to diarrhea. She is on IV fluids. She may need PICC line, as IV access has been a problem and her port was removed. (3) Hypokalemia Is this a current diagnosis for this admission?: Yes Plan: Replace potassium and magnesium. (4) Diarrhea Is this a current diagnosis for this admission?: Yes Plan: I will hold her chemo this week. I have discussed with radiation oncology to see if they will consider holding her last 2 radiation treatments for a few days. Her C.dif was negative. Will continue to search for another cause of the diarrhea as well, but it may be due to treatment alone. I would continue imodium alternating with lomotil, and any other treatment modalities that will be effective in slowing down the stools. I have encouraged her to eat what she can. - Plan Summary Plan Summary: Thank you for this consult. I will continue to follow her with you.
[2018-10-29] MEDS ORDERED: LOPERAMIDE HCL 2 MG CAPSULE PO PRN (08:50)
[2018-10-29] MEDS ORDERED: DIPHENOXYLATE HCL/ATROP SULF 2.5-0.025 MG TABLET PO PRN (08:50)
[2018-10-29] MEDS: MAGNESIUM SULFATE 1 GM/D5W 100 ML IV SCH ×2 (11:22→12:30)
[2018-10-29] MEDS: VENLAFAXINE HCL 75 MG TABLET PO SCH (11:23)
[2018-10-29] MEDS: FAMOTIDINE 20 MG TABLET PO SCH ×2 (11:23→21:47)
[2018-10-29] MEDS ORDERED: NORMAL SALINE 10 ML SDV (AFTER EACH USE) IV PRN (11:30)
[2018-10-29] MEDS ORDERED: ONDANSETRON HCL INJ/PF 4 MG/2 ML SDV IV PRN (11:30)
--- NOTE | 2018-10-29 11:32 | RADIOLOGY REPORT (SQ) ---
EXAM DESCRIPTION: PICC INSERTION; U/S GUIDE FOR VASCULAR ACCESS; FLUORO/CV PLACEMENT COMPLETED DATE/TIME: 10/29/2018 11:01 am; 10/29/2018 10:58 am REASON FOR STUDY: Picc line placement; IV ACCESS COMPARISON: None. FLUOROSCOPY TIME: 29 seconds 2 images saved to PACS. TECHNIQUE: Fluoroscopic and ultrasound guided PICC placement. LIMITATIONS: None. PROCEDURE: After written consent and assessment were obtained, the patient was brought into the fluo roscopy room and placed supine on the table. Ultrasound evaluation of potential access sites were per formed. After successfully identifying a patent left basilic vein, the left arm was prepped and drape d in a sterile fashion along with the ultrasound probe. The entry site was anesthetized with 1% lidoc jw. A 21 gauge 7 cm needle was advanced through the skin and into the basilic vein under live ultra sound guidance. An ultrasound image was saved to PACS confirming access site. A .018 guide wire was then inserted through the needle and into the venous system. The needle was then removed and an 11 b lade scalpel was used to make a 1cm skin incision. A 5 fr peel-away sheath was advanced over the wir e and into the venous system. A measurement was then made using the existing wire and live fluoroscop ic guidance. The wire was then removed and trimmed. The PICC was advanced through the peel-away sheat h and into the venous system. The peel-away sheath was removed and the catheter was adhered to the pa tients arm with a stat lock. The catheter was then aspirated and flushed and a sterile bandage was pl aced over the access site. A fluoroscopic spot image was saved to PACS confirming the catheter tip w ithin the superior vena cava. IMPRESSION: SUCCESSFUL PLACEMENT OF A 5 FR DUAL LUMEN 40 CM PICC IN THE LEFT BASILIC VEIN. COMMENT: Patient medication list reviewed: Yes- Quality ID# [id number]:Eligible professional attests to doc umenting in the medical record they obtained, updated, or reviewed the patient's current medications. . Quality ID 145: Final reports for procedures using fluoroscopy that document radiation exposure yelitza jovany, or exposure time and number of fluorographic images (if radiation exposure indices are not avail able) Quality ID #76: The patient was prepped and draped using maximum sterile barrier technique including cap, mask, sterile gown, sterile gloves, a large sterile sheet, hand hygiene, and 2% Chlorhexidine fo r cutaneous antisepsis. When ultrasound is used, sterile ultrasound techniques are followed requiring sterile gel and sterile probes. TECHNICAL DOCUMENTATION: JOB ID: [id number] [employer]- All Rights Reserved rev-09/22 Reading location - IP/workstation name: [email or web address]
--- NOTE | 2018-10-29 12:13 | PDOC PROGRESS REPORT ---
Subjective Progress Note for:: 10/29/18 Subjective:: COLUMBA RANDALL is a 63 year old female with a past medical history significant for hypertension, hyperlipidemia, morbid obesity, and cervical cancer currently receiving chemo and radiation treatment under the care of Dr. Osborn who presents today with a complaint of 2 months of daily diarrhea bowel movements (greater than 12 each day), poor appetite, nausea, and muscle cramps he was admitted 10/28/2018 for dehydration and associated electrolyte derangements. Patient was seen on morning rounds. She is found resting in bed comfortably on room air. She reports that she is feeling much better today, however, she does continue to have bilateral lower extremity muscle cramps; especially to her calves. She does continue to have nausea and abdominal discomfort but requests to have her diet advanced to a regular diet. She denies fever, chills, chest pain, palpitations, dyspnea, and orthopnea. She does continue to have abdominal discomfort, nausea and loose stools, though per her usual. She has no new questions or concerns today. Nursing has requested PICC line due to multiple lost PIV's. Reason For Visit: HYPOKALEMIA,HYPOMAGNESEMIA,TORI,HYPOCALCEMIA Physical Exam Vital Signs: Temp Pulse Resp BP Pulse Ox 98.0 F 84 14 125/61 94 10/29/18 08:06 10/29/18 09:06 10/29/18 09:06 10/29/18 08:06 10/29/18 09:06 Intake & Output 10/28/18 10/29/18 10/30/18 06:59 06:59 06:59 Intake Total 4450 Balance 4450 Weight 99.1 kg General appearance: PRESENT: no acute distress, cooperative, morbidly obese, w ell-developed, well-nourished Head exam: PRESENT: atraumatic, normocephalic Eye exam: PRESENT: conjunctiva pink, EOMI, PERRLA. ABSENT: scleral icterus Ear exam: PRESENT: normal external ear exam Mouth exam: PRESENT: moist, tongue midline Neck exam: ABSENT: carotid bruit, JVD, lymphadenopathy, thyromegaly Respiratory exam: PRESENT: clear to auscultation corazon, symmetrical, unlabored. ABSENT: rales, rhonchi, wheezes Cardiovascular exam: PRESENT: RRR. ABSENT: diastolic murmur, rubs, systolic murmur Pulses: PRESENT: normal dorsalis pedis pul Vascular exam: PRESENT: normal capillary refill GI/Abdominal exam: PRESENT: normal bowel sounds, soft, tenderness. ABSENT: distended, guarding, mass, organolmegaly, rebound Rectal exam: PRESENT: deferred Extremities exam: PRESENT: full ROM. ABSENT: calf tenderness, clubbing, pedal edema Neurological exam: PRESENT: alert, awake, oriented to person, oriented to place, oriented to time, oriented to situation, CN II-XII grossly intact. ABSENT: motor sensory deficit Psychiatric exam: PRESENT: appropriate affect, normal mood. ABSENT: homicidal ideation, suicidal ideation Skin exam: PRESENT: dry, intact, warm. ABSENT: cyanosis, rash Results Laboratory Results: 10/29/18 04:30 10/29/18 04:30 10/28/18 10/28/18 10/28/18 12:25 12:25 12:25 WBC 4.6 RBC 4.39 Hgb 12.6 Hct 36.7 MCV 84 MCH 28.7 MCHC 34.3 RDW 13.4 Plt Count 186 Seg Neutrophils % 72.8 Lymphocytes % 12.7 L Monocytes % 11.0 Eosinophils % 2.5 Basophils % 1.0 Absolute Neutrophils 3.4 Absolute Lymphocytes 0.6 Absolute Monocytes 0.5 Absolute Eosinophils 0.1 Absolute Basophils 0.0 VBG pH VBG pCO2 VBG HCO3 VBG Base Excess Sodium 142.0 Potassium 4.5 Chloride 103 Carbon Dioxide 24 Anion Gap 15 BUN 22 H Creatinine 1.67 H Est GFR ( Amer) 38 L Est GFR (Non-Af Amer) 31 L Glucose 108 Lactic Acid 5.5 H Calcium 6.6 L* Phosphorus Magnesium 0.7 L* Total Bilirubin 0.7 AST 42 H ALT 25 Alkaline Phosphatase 62 Total Protein 6.9 Albumin 4.1 Lipase 67.0 TSH Urine Color Urine Appearance Urine pH Ur Specific Bryant Urine Protein Urine Glucose (UA) Urine Ketones Urine Blood Urine Nitrite Ur Leukocyte Esterase Urine WBC (Auto) Urine RBC (Auto) Stool Occult Blood 10/28/18 10/28/18 10/29/18 12:25 16:13 03:30 WBC RBC Hgb Hct MCV MCH MCHC RDW Plt Count Seg Neutrophils % Lymphocytes % Monocytes % Eosinophils % Basophils % Absolute Neutrophils Absolute Lymphocytes Absolute Monocytes Absolute Eosinophils Absolute Basophils VBG pH 7.40 VBG pCO2 41.4 VBG HCO3 25.3 VBG Base Excess 0.5 Sodium Potassium Chloride Carbon Dioxide Anion Gap BUN Creatinine Est GFR ( Amer) Est GFR (Non-Af Amer) Glucose Lactic Acid Calcium Phosphorus Magnesium Total Bilirubin AST ALT Alkaline Phosphatase Total Protein Albumin Lipase TSH Urine Color YELLOW Urine Appearance SLIGHTLY-CLOUDY Urine pH 5.0 Ur Specific Bryant 1.014 Urine Protein 30 H Urine Glucose (UA) NEGATIVE Urine Ketones NEGATIVE Urine Blood LARGE H Urine Nitrite NEGATIVE Ur Leukocyte Esterase MODERATE H Urine WBC (Auto) 40 Urine RBC (Auto) 8 Stool Occult Blood NEGATIVE 10/29/18 10/29/18 10/29/18 04:30 04:30 04:30 WBC 2.6 L D RBC 3.69 L Hgb 10.5 L D Hct 30.5 L MCV 83 MCH 28.4 MCHC 34.3 RDW 13.4 Plt Count 124 L Seg Neutrophils % 76.3 Lymphocytes % 8.8 L Monocytes % 11.0 Eosinophils % 3.2 Basophils % 0.7 Absolute Neutrophils 2.0 Absolute Lymphocytes 0.2 L Absolute Monocytes 0.3 Absolute Eosinophils 0.1 Absolute Basophils 0.0 VBG pH VBG pCO2 VBG HCO3 VBG Base Excess Sodium 139.3 Potassium 2.9 L* D Chloride 105 Carbon Dioxide 27 Anion Gap 7 BUN 16 Creatinine 1.29 H Est GFR ( Amer) 51 L Est GFR (Non-Af Amer) 42 L Glucose 101 Lactic Acid 1.5 Calcium 6.0 L* Phosphorus 3.7 Magnesium 1.4 L Total Bilirubin 0.4 AST 30 ALT 17 Alkaline Phosphatase 43 Total Protein 5.2 L Albumin 3.0 L Lipase TSH Urine Color Urine Appearance Urine pH Ur Specific Bryant Urine Protein Urine Glucose (UA) Urine Ketones Urine Blood Urine Nitrite Ur Leukocyte Esterase Urine WBC (Auto) Urine RBC (Auto) Stool Occult Blood 10/29/18 04:30 WBC RBC Hgb Hct MCV MCH MCHC RDW Plt Count Seg Neutrophils % Lymphocytes % Monocytes % Eosinophils % Basophils % Absolute Neutrophils Absolute Lymphocytes Absolute Monocytes Absolute Eosinophils Absolute Basophils VBG pH VBG pCO2 VBG HCO3 VBG Base Excess Sodium Potassium Chloride Carbon Dioxide Anion Gap BUN Creatinine Est GFR ( Amer) Est GFR (Non-Af Amer) Glucose Lactic Acid Calcium Phosphorus Magnesium Total Bilirubin AST ALT Alkaline Phosphatase Total Protein Albumin Lipase TSH 4.47 Urine Color Urine Appearance Urine pH Ur Specific Bryant Urine Protein Urine Glucose (UA) Urine Ketones Urine Blood Urine Nitrite Ur Leukocyte Esterase Urine WBC (Auto) Urine RBC (Auto) Stool Occult Blood 10/28/18 16:13 Clean Catch Midstream Urine Culture - Final Mixed Urogenital La 10/28/18 10/28/18 12:25 12:25 Creatine Kinase 254 H CK-MB (CK-2) 1.45 Troponin I < 0.012 Impressions: Chest X-Ray 10/28/18 12:29 IMPRESSION: NO ACUTE RADIOGRAPHIC FINDING IN THE CHEST. Guidance Fluoroscopy 10/29/18 00:00 IMPRESSION: SUCCESSFUL PLACEMENT OF A 5 FR DUAL LUMEN 40 CM PICC IN THE LEFT BASILIC VEIN. Interventional Vascular Procedure 10/29/18 00:00 IMPRESSION: SUCCESSFUL PLACEMENT OF A 5 FR DUAL LUMEN 40 CM PICC IN THE LEFT BASILIC VEIN. PICC Line Insertion 10/29/18 00:00 IMPRESSION: SUCCESSFUL PLACEMENT OF A 5 FR DUAL LUMEN 40 CM PICC IN THE LEFT BASILIC VEIN. Assessment and Plan - Diagnosis (1) Acute renal failure Qualifiers: Acute renal failure type: unspecified Qualified Code(s): N17.9 - Acute ki dney failure, unspecified Is this a current diagnosis for this admission?: Yes Plan: Prerenal secondary to poor p.o. intake and GI losses. Patient is admitted with a creatinine of 1.67; improved to 1.29 today. Baseline is 0.72. We will continue to provide generous IV fluids. Avoid nephrotoxic medications as able. Daily chemistries. (2) Chronic diarrhea Is this a current diagnosis for this admission?: Yes Plan: Patient reports that onset of diarrhea coincides with beginning of radiation treatments. Has been present for 2 months; symptoms are unchanged other than one episode of stool incontinence yesterday. Reassurance provided. Stool culture pending. No indications for antibiotics at this time. Imodium and Lomotil available as needed. (3) Hypocalcemia Is this a current diagnosis for this admission?: Yes Plan: Calcium 6.0. Albumin 3.0. Corrected to 6.8. Phosphorus 3.7 Secondary to poor p.o. intake and GI losses. She was provided 1 g calcium gluconate by the ED provider. She is provided an additional IV calcium gluconate 1 g today. Daily chemistries and continue replace as indicated. (4) Hypomagnesemia Is this a current diagnosis for this admission?: Yes Plan: Magnesium 0.7 -> 1.4 Secondary to poor p.o. intake and GI losses. She received a total of 4 g IV yesterday. She will be provided additional 2 g IV magnesium today. Repeat magnesium in the morning and continue to replace as indicated. (5) Muscle cramping Is this a current diagnosis for this admission?: Yes Plan: Improved. Secondary to TORI and electrolyte derangement. Management as above. (6) Cervical cancer Is this a current diagnosis for this admission?: Yes Plan: Scheduled for radiation treatment tomorrow. Have consulted Dr. Osborn; management per her expertise. (7) Hypertension Qualifiers: Hypertension type: essential hypertension Qualified Code(s): I10 - Essential (primary) hypertension Is this a current diagnosis for this admission?: Yes Plan: Continue home dose metoprolol. (8) Hyperlipidemia Is this a current diagnosis for this admission?: Yes Plan: Continue home dose statin therapy. - Time Time Spent with patient: 15-24 minutes Medications reviewed and adjusted accordingly: Yes Anticipated discharge: Home Within: within 72 hours - Inpatient Certification Based on my medical assessment, after consideration of the patient's comorbidities, presenting symptoms, or acuity I expect that the services needed warrant INPATIENT care.: Yes I certify that my determination is in accordance with my understanding of Medicare's requirements for reasonable and necessary INPATIENT services [42 CFR 412.3e].: Yes Medical Necessity: Failure to Improve With Outpatient Therapy, Need For IV Fluids, Risk of Complication if Not Cared For in Hospital, Risk of Diagnosis Which Will Require Inpatient Eval/Care/Monitoring
[2018-10-29] MEDS ORDERED: POTASSI CL 20 MEQ/50 ML RIDER 20 MEQ/50 ML RTUPB IV ONE (12:23)
[2018-10-29] MEDS: MAGNESIUM SULFATE/D5W 1 GM/100 ML RTUPB IV SCH (12:37)
[2018-10-29] MEDS ORDERED: PROMETHAZINE HCL INJ 25 MG/1 ML VIAL IV PRN (14:02)
[2018-10-29] MEDS: METOPROLOL TARTRATE 50 MG TABLET PO SCH (21:47)
[2018-10-29] MEDS: SIMVASTATIN 40 MG TABLET PO SCH (21:47)
[2018-10-29] MEDS: NORMAL SALINE 10 ML SDV (SCHEDULED) IV SCH (21:48)
[2018-10-30] MEDS: NORMAL SALINE 1000 ML 1,000 ML IV PRN (00:16)
[2018-10-30] MEDS: HEPARIN SOD (PORCINE) 5,000 UNIT/ML 1 ML SYRINGE SUBCUT SCH ×3 (05:24→21:24)
[2018-10-30 07:27] LABS: HEMATOCRIT 28.2 % (36.0-47.0); HEMOGLOBIN 9.7 g/dL (12.0-15.5); MEAN CORPUSCULAR HEMOGLOBIN 28.9 pg (27.0-33.4); MEAN CORPUSCULAR HGB CONC 34.4 g/dL (32.0-36.0); MEAN CORPUSCULAR VOLUME 84 fl (80-97); PLATELET COUNT 116 10^3/uL (150-450); RED BLOOD COUNT 3.35 10^6/uL (3.72-5.28); RED CELL DISTRIBUTION WIDTH 13.3 % (11.5-14.0); WHITE BLOOD COUNT 2.6 10^3/uL (4.0-10.5)
[2018-10-30 07:32] LABS: ANION GAP 7 (5-19); BLOOD UREA NITROGEN 9 mg/dL (7-20); CARBON DIOXIDE 28 mmol/L (22-30); CHLORIDE 104 mmol/L (98-107); GLUCOSE 98 mg/dL (75-110); POTASSIUM 3.1 mmol/L (3.6-5.0); SODIUM 139.2 mmol/L (137-145)
--- NOTE | 2018-10-30 07:39 | PDOC PROGRESS REPORT ---
Subjective Progress Note for:: 10/30/18 Subjective:: Patient states she feels about the same. Still has diarrhea every time she eats, so she is afraid to eat. Muscle cramps are better. No new problems voiced. She does not like the diarrhea medicine, because it sometimes works "too well." ROS: No dyspnea, No chest pain. Reason For Visit: HYPOKALEMIA,HYPOMAGNESEMIA,TORI,HYPOCALCEMIA Physical Exam Vital Signs: Temp Pulse Resp BP Pulse Ox 99.2 F 91 17 138/63 H 98 10/29/18 23:23 10/29/18 23:23 10/29/18 23:23 10/29/18 23:23 10/29/18 23:23 Intake & Output 10/29/18 10/30/18 10/31/18 06:59 06:59 06:59 Intake Total 4450 2643 Output Total 3 Balance 4450 2640 Weight 99.1 kg 100.5 kg General appearance: PRESENT: no acute distress, obese Head exam: PRESENT: normocephalic Respiratory exam: PRESENT: unlabored Extremities exam: ABSENT: pedal edema Neurological exam: PRESENT: alert, awake Skin exam: PRESENT: normal color Results Laboratory Results: 10/30/18 07:15 10/30/18 07:15 WBC 2.6 L RBC 3.35 L Hgb 9.7 L Hct 28.2 L MCV 84 MCH 28.9 MCHC 34.4 RDW 13.3 Plt Count 116 L 10/28/18 16:13 Clean Catch Midstream Urine Culture - Final Mixed Urogenital La 10/28/18 10/28/18 12:25 12:25 Creatine Kinase 254 H CK-MB (CK-2) 1.45 Troponin I < 0.012 Impressions: Chest X-Ray 10/28/18 12:29 IMPRESSION: NO ACUTE RADIOGRAPHIC FINDING IN THE CHEST. Guidance Fluoroscopy 10/29/18 00:00 IMPRESSION: SUCCESSFUL PLACEMENT OF A 5 FR DUAL LUMEN 40 CM PICC IN THE LEFT BASILIC VEIN. Interventional Vascular Procedure 10/29/18 00:00 IMPRESSION: SUCCESSFUL PLACEMENT OF A 5 FR DUAL LUMEN 40 CM PICC IN THE LEFT BASILIC VEIN. PICC Line Insertion 10/29/18 00:00 IMPRESSION: SUCCESSFUL PLACEMENT OF A 5 FR DUAL LUMEN 40 CM PICC IN THE LEFT BASILIC VEIN. Assessment & Plan - Diagnosis (1) Cervical cancer Is this a current diagnosis for this admission?: Yes (2) Dehydration Is this a current diagnosis for this admission?: Yes (3) Hypokalemia Is this a current diagnosis for this admission?: Yes (4) Diarrhea Is this a current diagnosis for this admission?: Yes Plan: Most likely due to radiation therapy. She did not receive radiation yesterday. She is due for 2 more treatments. No further chemo planned. C.dif was negative. Labs still pending this morning. Continue current treatments.
[2018-10-30 08:19] LABS: CALCIUM 6.4 mg/dL (8.4-10.2)
[2018-10-30] MEDS: FAMOTIDINE 20 MG TABLET PO SCH ×2 (10:04→21:23)
[2018-10-30] MEDS: MAGNESIUM SULFATE/D5W 1 GM/100 ML RTUPB IV SCH ×3 (10:05→12:52)
[2018-10-30] MEDS: VENLAFAXINE HCL 75 MG TABLET PO SCH (10:05)
[2018-10-30] MEDS: NORMAL SALINE 10 ML SDV (SCHEDULED) IV SCH ×2 (10:06→21:23)
[2018-10-30] MEDS ORDERED: CALCIUM GLUCONATE 2,000 MG in DEXTROSE 5%-WATER 100 ML IV ONE (11:00)
[2018-10-30] MEDS ORDERED: TRAMADOL HCL 50 MG TABLET PO PRN (11:43)
[2018-10-30] MEDS ORDERED: ACETAMINOPHEN 325 MG TABLET PO PRN (11:44)
[2018-10-30] MEDS ORDERED: MORPHINE SULFATE 10 MG/ML INJ IV PRN (11:45)
[2018-10-30] MEDS: LOPERAMIDE HCL 2 MG CAPSULE PO SCH ×3 (12:51→23:05)
[2018-10-30] MEDS: POTASSI CL 20 MEQ/50 ML RIDER 20 MEQ/50 ML RTUPB IV SCH ×2 (14:35→17:02)
[2018-10-30] MEDS ORDERED: POTASSI CL 20 MEQ/50 ML RIDER 20 MEQ/50 ML RTUPB IV ONE (16:56)
[2018-10-30] MEDS: METOPROLOL TARTRATE 50 MG TABLET PO SCH (21:23)
[2018-10-30] MEDS: SIMVASTATIN 40 MG TABLET PO SCH (21:23)
--- NOTE | 2018-10-30 21:31 | PDOC PROGRESS REPORT ---
Subjective Progress Note for:: 10/30/18 Subjective:: COLUMBA RANDALL is a 63 year old female with a past medical history significant for hypertension, hyperlipidemia, morbid obesity, and cervical cancer currently receiving chemo and radiation treatment under the care of Dr. Osborn who presents today with a complaint of 2 months of daily diarrhea bowel movements (greater than 12 each day), poor appetite, nausea, and muscle cramps he was admitted 10/28/2018 for dehydration and associated electrolyte derangements. The patient was seen on rounds. She is resting in bed. She states she is experiencing a COOPER, nausea and dizziness after getting OOB this morning to wash up and change her clothes. The patient states she is still having diarrhea. States she has not been receiving immodium or lomotil, mostly because the patient did not know that these medications were PRN and she needed to ask for them. Plan to make immodium scheduled. Also, will start patient on a pain and nausea regimen. Continue IVF. The patient continues to have significant electrolyte derrangements, these will need to be addressed today. The patient will remain at [facility] due to minimal resolution of her presenting symptoms. Reason For Visit: HYPOKALEMIA,HYPOMAGNESEMIA,TORI,HYPOCALCEMIA Physical Exam Vital Signs: Temp Pulse Resp BP Pulse Ox 98.6 F 88 16 150/70 H 100 10/30/18 15:17 10/30/18 15:17 10/30/18 15:17 10/30/18 15:17 10/30/18 15:17 Intake & Output 10/29/18 10/30/18 10/31/18 06:59 06:59 06:59 Intake Total 4450 2643 1862 Output Total 3 Balance 4450 2640 1862 Weight 99.1 kg 100.5 kg General appearance: PRESENT: no acute distress, morbidly obese Head exam: PRESENT: atraumatic, normocephalic Eye exam: PRESENT: conjunctiva pink, EOMI, PERRLA. ABSENT: scleral icterus Ear exam: PRESENT: normal external ear exam Mouth exam: PRESENT: moist, tongue midline Neck exam: ABSENT: carotid bruit, JVD, lymphadenopathy, thyromegaly Respiratory exam: PRESENT: clear to auscultation corazon, symmetrical, unlabored. ABSENT: rales, rhonchi, wheezes Cardiovascular exam: PRESENT: RRR. ABSENT: diastolic murmur, rubs, systolic murmur Pulses: PRESENT: normal radial pulses, normal dorsalis pedis pul Vascular exam: PRESENT: normal capillary refill GI/Abdominal exam: PRESENT: normal bowel sounds, soft, tenderness - upper quadrants. ABSENT: distended, guarding, mass, organolmegaly, rebound Rectal exam: PRESENT: deferred Extremities exam: PRESENT: full ROM. ABSENT: calf tenderness, clubbing, pedal edema Musculoskeletal exam: PRESENT: ambulatory, full ROM Neurological exam: PRESENT: alert, awake, oriented to person, oriented to place, oriented to time, oriented to situation Psychiatric exam: PRESENT: appropriate affect, normal mood Skin exam: PRESENT: dry, intact, warm. ABSENT: cyanosis, rash Results Laboratory Results: 10/30/18 07:15 10/30/18 07:15 10/28/18 10/30/18 10/30/18 12:25 07:15 07:15 WBC 4.6 2.6 L RBC 4.39 3.35 L Hgb 12.6 9.7 L Hct 36.7 28.2 L MCV 84 84 MCH 28.7 28.9 MCHC 34.3 34.4 RDW 13.4 13.3 Plt Count 186 116 L Seg Neutrophils % 72.8 Lymphocytes % 12.7 L Monocytes % 11.0 Eosinophils % 2.5 Basophils % 1.0 Absolute Neutrophils 3.4 Absolute Lymphocytes 0.6 Absolute Monocytes 0.5 Absolute Eosinophils 0.1 Absolute Basophils 0.0 Sodium 139.2 Potassium 3.1 L Chloride 104 Carbon Dioxide 28 Anion Gap 7 BUN 9 Creatinine 1.17 Est GFR ( Amer) 57 L Est GFR (Non-Af Amer) 47 L Glucose 98 Calcium 6.4 L* Magnesium 1.0 L* 10/28/18 10/28/18 12:25 12:25 Creatine Kinase 254 H CK-MB (CK-2) 1.45 Troponin I < 0.012 Impressions: Chest X-Ray 10/28/18 12:29 IMPRESSION: NO ACUTE RADIOGRAPHIC FINDING IN THE CHEST. Guidance Fluoroscopy 10/29/18 00:00 IMPRESSION: SUCCESSFUL PLACEMENT OF A 5 FR DUAL LUMEN 40 CM PICC IN THE LEFT BASILIC VEIN. Interventional Vascular Procedure 10/29/18 00:00 IMPRESSION: SUCCESSFUL PLACEMENT OF A 5 FR DUAL LUMEN 40 CM PICC IN THE LEFT BASILIC VEIN. PICC Line Insertion 10/29/18 00:00 IMPRESSION: SUCCESSFUL PLACEMENT OF A 5 FR DUAL LUMEN 40 CM PICC IN THE LEFT BASILIC VEIN. Status: Imported from PACS Assessment and Plan - Diagnosis (1) Acute renal failure (ARF) Is this a current diagnosis for this admission?: Yes Plan: Prerenal secondary to poor p.o. intake and GI losses. Patient is admitted with a creatinine of 1.67; improved to 1.17 today. Baseline is 0.72. We will continue to provide generous IV fluids. Avoid nephrotoxic medications as able. Daily chemistries. (2) Hypocalcemia Is this a current diagnosis for this admission?: Yes Plan: Corrected to 7.2 Secondary to poor p.o. intake and GI losses. She was provided 1 g calcium gluconate by the ED provider. She is provided an additional IV calcium gluconate 1 g today. Check ionized calcium later today Daily chemistries and continue replace as indicated. (3) Chronic diarrhea Is this a current diagnosis for this admission?: Yes Plan: Patient reports that onset of diarrhea coincides with beginning of radiation tr eatments. Has been present for 2 months; symptoms are unchanged other than one episode of stool incontinence yesterday. Reassurance provided. Stool culture pending. No indications for antibiotics at this time. Imodium scheduled for 48hrs in hopes of alleviating diarrhea (4) Cervical cancer Is this a current diagnosis for this admission?: Yes Plan: Scheduled for radiation treatment tomorrow. Have consulted Dr. Osborn; management per her expertise. (5) Muscle cramping Is this a current diagnosis for this admission?: Yes Plan: Improved. Secondary to TORI and electrolyte derangement. Management as above. (6) Hyperlipidemia Is this a current diagnosis for this admission?: Yes Plan: Continue home dose statin therapy. (7) Hypertension Qualifiers: Hypertension type: essential hypertension Qualified Code(s): I10 - E ssential (primary) hypertension Is this a current diagnosis for this admission?: Yes Plan: Continue home dose metoprolol. - Time Time Spent with patient: 15-24 minutes Medications reviewed and adjusted accordingly: Yes Anticipated discharge: Home Within: within 24 hours, within 48 hours - Inpatient Certification Based on my medical assessment, after consideration of the patient's comorbidities, presenting symptoms, or acuity I expect that the services needed warrant INPATIENT care.: Yes I certify that my determination is in accordance with my understanding of Medicare's requirements for reasonable and necessary INPATIENT services [42 CFR 412.3e].: Yes Medical Necessity: Need For Continuous Telemetry Monitoring, Risk of Complicati on if Not Cared For in Hospital
--- NOTE | 2018-10-30 21:32 | Progress Note Acknowledgement ---
Progress Note Acknowledgement Progess Note Acknowledgement: I, the undersigned member of the medical staff with appropriate privileges and with supervisory authority over [ lucila caldwell ], a [facility] practice allied health professional, acknowledge that I have reviewed the progress notes entered on this patient, and in my professional judgment believe that the assessment made and/or any care evidenced was appropriate
[2018-10-31] MEDS: HEPARIN SOD (PORCINE) 5,000 UNIT/ML 1 ML SYRINGE SUBCUT SCH ×3 (05:03→21:10)
[2018-10-31] MEDS: LOPERAMIDE HCL 2 MG CAPSULE PO SCH ×4 (05:06→23:46)
[2018-10-31 05:40] LABS: HEMATOCRIT 27.4 % (36.0-47.0); HEMOGLOBIN 9.4 g/dL (12.0-15.5); MEAN CORPUSCULAR HEMOGLOBIN 28.8 pg (27.0-33.4); MEAN CORPUSCULAR HGB CONC 34.3 g/dL (32.0-36.0); MEAN CORPUSCULAR VOLUME 84 fl (80-97); PLATELET COUNT 103 10^3/uL (150-450); RED BLOOD COUNT 3.27 10^6/uL (3.72-5.28); RED CELL DISTRIBUTION WIDTH 13.1 % (11.5-14.0); WHITE BLOOD COUNT 2.1 10^3/uL (4.0-10.5)
[2018-10-31 05:57] LABS: ANION GAP 6 (5-19); BLOOD UREA NITROGEN 5 mg/dL (7-20); CARBON DIOXIDE 31 mmol/L (22-30); CHLORIDE 103 mmol/L (98-107); GLUCOSE 99 mg/dL (75-110); SODIUM 139.9 mmol/L (137-145)
[2018-10-31 06:10] LABS: CALCIUM 6.7 mg/dL (8.4-10.2)
[2018-10-31] MEDS: POTASSIUM CHLORIDE 10 MEQ CAPSULE.ER PO SCH ×3 (08:55→19:09)
[2018-10-31] MEDS: VENLAFAXINE HCL 75 MG TABLET PO SCH (11:40)
[2018-10-31] MEDS: NORMAL SALINE 1000 ML 1,000 ML IV PRN ×2 (11:40→21:19)
[2018-10-31] MEDS: FAMOTIDINE 20 MG TABLET PO SCH ×2 (11:41→21:16)
[2018-10-31] MEDS: MAGNESIUM OXIDE 400 MG TABLET PO SCH ×2 (11:41→19:08)
[2018-10-31] MEDS: NORMAL SALINE 10 ML SDV (SCHEDULED) IV SCH ×2 (11:42→21:19)
[2018-10-31] MEDS ORDERED: CALCIUM GLUCONATE 2,000 MG in DEXTROSE 5%-WATER 100 ML IV ONE (13:00)
--- NOTE | 2018-10-31 16:05 | PDOC PROGRESS REPORT ---
Subjective Progress Note for:: 10/31/18 Subjective:: COLUMBA RANDALL is a 63 year old female with a past medical history significant for hypertension, hyperlipidemia, morbid obesity, and cervical cancer currently receiving chemo and radiation treatment under the care of Dr. Osborn who presents today with a complaint of 2 months of daily diarrhea bowel movements (greater than 12 each day), poor appetite, nausea, and muscle cramps he was admitted 10/28/2018 for dehydration and associated electrolyte derangements. The patient was seen on rounds. She is resting in bed. She states she feels much better when compared to yesterday. The patient states she is able to get OOB this morning and ambulate to restroom. The patient states she is still having diarrhea. Multiple episodes of watery diarrhea overnight, one episode of incontinence because she "could not get to the toilet on time." Has been receiving scheduled immodium, will increase dosage today to help alleviate diarrhea. Plan for radiation and Monday if patient is able to tolerate. The patient will remain at [facility] due to minimal resolution of her presenting symptoms. Reason For Visit: HYPOKALEMIA,HYPOMAGNESEMIA,TORI,HYPOCALCEMIA Physical Exam Vital Signs: Temp Pulse Resp BP Pulse Ox 98.4 F 70 17 129/45 H 96 10/30/18 23:31 10/30/18 23:31 10/30/18 23:31 10/30/18 23:31 10/30/18 23:31 Intake & Output 10/30/18 10/31/18 11/01/18 06:59 06:59 06:59 Intake Total 2643 1862 Output Total 3 Balance 2640 1862 Weight 100.5 kg 101.1 kg General appearance: PRESENT: no acute distress, morbidly obese Head exam: PRESENT: atraumatic, normocephalic Eye exam: PRESENT: conjunctiva pink, EOMI, PERRLA. ABSENT: scleral icterus Ear exam: PRESENT: normal external ear exam Mouth exam: PRESENT: moist, tongue midline Neck exam: ABSENT: carotid bruit, JVD, lymphadenopathy, thyromegaly Respiratory exam: PRESENT: clear to auscultation corazon, symmetrical, unlabored. ABSENT: rales, rhonchi, wheezes Cardiovascular exam: PRESENT: RRR. ABSENT: diastolic murmur, rubs, systolic murmur Pulses: PRESENT: normal radial pulses Vascular exam: PRESENT: normal capillary refill GI/Abdominal exam: PRESENT: normal bowel sounds, soft, tenderness - mild TTP bi lateral upper quadrants, other - rotund. obese.. ABSENT: distended, guarding, mass, organolmegaly, rebound Rectal exam: PRESENT: deferred Extremities exam: PRESENT: full ROM. ABSENT: calf tenderness, clubbing, pedal edema Musculoskeletal exam: PRESENT: ambulatory, full ROM Neurological exam: PRESENT: alert, awake, oriented to person, oriented to place, oriented to time, oriented to situation Psychiatric exam: PRESENT: appropriate affect, normal mood Skin exam: PRESENT: dry, intact, warm. ABSENT: cyanosis, rash Results Laboratory Results: 10/31/18 05:15 10/31/18 05:15 10/31/18 10/31/18 10/31/18 05:15 05:15 05:15 WBC 2.1 L RBC 3.27 L Hgb 9.4 L Hct 27.4 L MCV 84 MCH 28.8 MCHC 34.3 RDW 13.1 Plt Count 103 L Sodium 139.9 Potassium 3.0 L* Chloride 103 Carbon Dioxide 31 H Anion Gap 6 BUN 5 L Creatinine 1.06 Est GFR ( Amer) > 60 Est GFR (Non-Af Amer) 53 L Glucose 99 Calcium 6.7 L* Magnesium 1.1 L* Albumin 2.6 L 10/28/18 10/28/18 12:25 12:25 Creatine Kinase 254 H CK-MB (CK-2) 1.45 Troponin I < 0.012 Impressions: Chest X-Ray 10/28/18 12:29 IMPRESSION: NO ACUTE RADIOGRAPHIC FINDING IN THE CHEST. Guidance Fluoroscopy 10/29/18 00:00 IMPRESSION: SUCCESSFUL PLACEMENT OF A 5 FR DUAL LUMEN 40 CM PICC IN THE LEFT BASILIC VEIN. Interventional Vascular Procedure 10/29/18 00:00 IMPRESSION: SUCCESSFUL PLACEMENT OF A 5 FR DUAL LUMEN 40 CM PICC IN THE LEFT BASILIC VEIN. PICC Line Insertion 10/29/18 00:00 IMPRESSION: SUCCESSFUL PLACEMENT OF A 5 FR DUAL LUMEN 40 CM PICC IN THE LEFT BASILIC VEIN. Status: Imported from PACS Assessment and Plan - Diagnosis (1) Acute renal failure (ARF) Is this a current diagnosis for this admission?: Yes Plan: Prerenal secondary to poor p.o. intake and GI losses. Patient is admitted with a creatinine of 1.67; improved to 1.06 today. Baseline is 0.72. We will continue to provide generous IV fluids. Avoid nephrotoxic medications as able. Daily chemistries. (2) Hypocalcemia Is this a current diagnosis for this admission?: Yes Plan: Corrected to 7.8 Secondary to poor p.o. intake and GI losses. She was provided 1 g calcium gluconate by the ED provider. She is provided an additional IV calcium gluconate 1 g today. Check ionized calcium later today Daily chemistries and continue replace as indicated. (3) Chronic diarrhea Is this a current diagnosis for this admission?: Yes Plan: Patient reports that onset of diarrhea coincides with beginning of radiation treatments. Has been present for 2 months Patient reports few episodes of incontinence because she can't "get to the restroom in time" Reassurance provided. CDIFF PCR and OCCULT STOOL negative No indications for antibiotics at this time. Increased dose of scheduled Immodium in hopes of alleviating diarrhea (4) Cervical cancer Is this a current diagnosis for this admission?: Yes Plan: Scheduled for radiation treatment and Monday Have consulted Dr. Osborn; management per her expertise. (5) Muscle cramping Is this a current diagnosis for this admission?: Yes Plan: Resolved Secondary to TORI and electrolyte derangement. Management as above. (6) Hyperlipidemia Is this a current diagnosis for this admission?: Yes Plan: Continue home dose statin therapy. (7) Hypertension Qualifiers: Hypertension type: essential hypertension Qualified Code(s): I10 - Essential (primary) hypertension Is this a current diagnosis for this admission?: Yes Plan: Continue home dose metoprolol. - Time Time Spent with patient: 15-24 minutes Medications reviewed and adjusted accordingly: Yes Anticipated discharge: Home Within: Other - medically stable - Inpatient Certification Based on my medical assessment, after consideration of the patient's comorbidities, presenting symptoms, or acuity I expect that the services needed warrant INPATIENT care.: Yes I certify that my determination is in accordance with my understanding of Medicare's requirements for reasonable and necessary INPATIENT services [42 CFR 412.3e].: Yes Medical Necessity: Need For Continuous Telemetry Monitoring, Risk of Complica tion if Not Cared For in Hospital, Other - Electrolyte replacement
[2018-10-31] MEDS: MAGNESIUM SULFATE/D5W 1 GM/100 ML RTUPB IV SCH ×2 (16:20→19:08)
[2018-10-31 17:12] LABS: ANION GAP 5 (5-19); BLOOD UREA NITROGEN 5 mg/dL (7-20); CARBON DIOXIDE 31 mmol/L (22-30); CHLORIDE 103 mmol/L (98-107); GLUCOSE 91 mg/dL (75-110); PHOSPHORUS 3.1 mg/dL (2.5-4.5); POTASSIUM 3.4 mmol/L (3.6-5.0); SODIUM 139.1 mmol/L (137-145)
[2018-10-31 17:23] LABS: CALCIUM 6.6 mg/dL (8.4-10.2)
[2018-10-31] MEDS ORDERED: MAGNESIUM SULFATE/D5W 1 GM/100 ML RTUPB IV ONE (19:05)
[2018-10-31 21:10] LABS: ANION GAP 8 (5-19); BLOOD UREA NITROGEN 4 mg/dL (7-20); CALCIUM 7.4 mg/dL (8.4-10.2); CARBON DIOXIDE 29 mmol/L (22-30); CHLORIDE 101 mmol/L (98-107); GLUCOSE 91 mg/dL (75-110); POTASSIUM 3.6 mmol/L (3.6-5.0); SODIUM 138.3 mmol/L (137-145)
[2018-10-31] MEDS: SIMVASTATIN 40 MG TABLET PO SCH (21:18)
[2018-10-31] MEDS: METOPROLOL TARTRATE 50 MG TABLET PO SCH (21:18)
[2018-11-01] MEDS: HEPARIN SOD (PORCINE) 5,000 UNIT/ML 1 ML SYRINGE SUBCUT SCH ×3 (05:25→21:39)
[2018-11-01] MEDS: NORMAL SALINE 1000 ML 1,000 ML IV PRN ×2 (05:26→14:57)
[2018-11-01] MEDS: LOPERAMIDE HCL 2 MG CAPSULE PO SCH ×4 (05:26→23:26)
[2018-11-01 09:54] LABS: ALANINE AMINOTRANSFERASE 21 U/L (9-52); ALBUMIN 2.8 g/dL (3.5-5.0); ALKALINE PHOSPHATASE 54 U/L (38-126); ANION GAP 5 (5-19); ASPARTATE AMINO TRANSFERASE 19 U/L (14-36); BILIRUBIN,DIRECT 0.2 mg/dL (0.0-0.4); BILIRUBIN,TOTAL 0.2 mg/dL (0.2-1.3); BLOOD UREA NITROGEN 3 mg/dL (7-20); CARBON DIOXIDE 32 mmol/L (22-30); CHLORIDE 102 mmol/L (98-107); GLUCOSE 114 mg/dL (75-110); PHOSPHORUS 2.9 mg/dL (2.5-4.5); POTASSIUM 3.5 mmol/L (3.6-5.0); SODIUM 139.1 mmol/L (137-145); TOTAL PROTEIN 4.9 g/dL (6.3-8.2)
[2018-11-01] MEDS: POTASSIUM CHLORIDE 10 MEQ CAPSULE.ER PO SCH ×3 (09:59→16:15)
[2018-11-01] MEDS: MAGNESIUM OXIDE 400 MG TABLET PO SCH ×2 (09:59→19:48)
[2018-11-01] MEDS: FAMOTIDINE 20 MG TABLET PO SCH ×2 (10:00→21:32)
[2018-11-01] MEDS: NORMAL SALINE 10 ML SDV (SCHEDULED) IV SCH ×2 (10:01→21:33)
[2018-11-01 10:06] LABS: CALCIUM 6.8 mg/dL (8.4-10.2)
[2018-11-01] MEDS: VENLAFAXINE HCL 75 MG TABLET PO SCH (10:06)
[2018-11-01] MEDS ORDERED: CALCIUM GLUCONATE 1,000 MG in DEXTROSE 5%-WATER 50 ML IV ONE (15:20)
[2018-11-01] MEDS ORDERED: POTASSIUM CHLORIDE 10 MEQ CAPSULE.ER PO ONE ×2 (16:00→20:00)
[2018-11-01] MEDS ORDERED: MAGNESIUM SULFATE 4 GM/100 ML RTUPB IV ONE (16:30)
[2018-11-01] MEDS ORDERED: CALCIUM GLUCONATE 1000 MG/10 ML INJ IV ONE (16:30)
--- NOTE | 2018-11-01 21:25 | PDOC PROGRESS REPORT ---
Subjective Progress Note for:: 11/01/18 Subjective:: COLUMBA RANDALL is a 63 year old female with a past medical history significant for hypertension, hyperlipidemia, morbid obesity, and cervical cancer currently receiving chemo and radiation treatment under the care of Dr. Osborn who presents today with a complaint of 2 months of daily diarrhea bowel movements (greater than 12 each day), poor appetite, nausea, and muscle cramps he was admitted 10/28/2018 for dehydration and associated electrolyte derangements. The patient was seen on rounds. She is resting in bed. She states she feels much better when compared to the last few days. The patient states her diarrhea is improving, she is passing semi-formed stool and her appetite is coming back. Her potassium, magnesium and calcium still remain significantly low - requiring hours of IV electrolyte replacement. She endorses R hip pain ,states this is a chronic ailment. Informed her that she has multiple pain medications available to her (tylenol, Tramadol, Morphine). Plan for radiation tomorrow. The patient will remain at [facility] due severe electrolyte derragements. Reason For Visit: HYPOKALEMIA,HYPOMAGNESEMIA,TORI,HYPOCALCEMIA Physical Exam Vital Signs: Temp Pulse Resp BP Pulse Ox 98.1 F 104 H 18 129/78 H 98 11/01/18 16:50 11/01/18 19:00 11/01/18 16:50 11/01/18 16:50 11/01/18 16:50 Intake & Output 10/31/18 11/01/18 11/02/18 06:59 06:59 06:59 Intake Total 1862 2340 1525 Balance 1862 2340 1525 Weight 101.1 kg 103.2 kg General appearance: PRESENT: no acute distress, obese Head exam: PRESENT: atraumatic, normocephalic Eye exam: PRESENT: conjunctiva pink, EOMI, PERRLA. ABSENT: scleral icterus Ear exam: PRESENT: normal external ear exam Mouth exam: PRESENT: moist, tongue midline Neck exam: PRESENT: full ROM. ABSENT: carotid bruit, JVD, lymphadenopathy, thyromegaly Respiratory exam: PRESENT: clear to auscultation corazon, symmetrical, unlabored. ABSENT: rales, rhonchi, wheezes Cardiovascular exam: PRESENT: RRR. ABSENT: diastolic murmur, rubs, systolic murmur Pulses: PRESENT: normal radial pulses, normal dorsalis pedis pul Vascular exam: PRESENT: normal capillary refill GI/Abdominal exam: PRESENT: normal bowel sounds, soft. ABSENT: distended, guarding, mass, organolmegaly, rebound, tenderness Rectal exam: PRESENT: deferred Extremities exam: PRESENT: full ROM. ABSENT: calf tenderness, clubbing, pedal edema Musculoskeletal exam: PRESENT: ambulatory, full ROM Neurological exam: PRESENT: alert, awake, oriented to person, oriented to place, oriented to time, oriented to situation Psychiatric exam: PRESENT: appropriate affect, normal mood Skin exam: PRESENT: dry, intact, warm. ABSENT: cyanosis, rash Results Laboratory Results: 10/31/18 05:15 11/01/18 09:10 11/01/18 09:10 Sodium 139.1 Potassium 3.5 L Chloride 102 Carbon Dioxide 32 H Anion Gap 5 BUN 3 L Creatinine 1.05 Est GFR ( Amer) > 60 Est GFR (Non-Af Amer) 53 L Glucose 114 H Calcium 6.8 L* Phosphorus 2.9 Magnesium 0.9 L* Total Bilirubin 0.2 AST 19 ALT 21 Alkaline Phosphatase 54 Total Protein 4.9 L Albumin 2.8 L 10/28/18 12:25 Blood Blood Culture - Final Staphylococcus Epidermidis 10/28/18 10/28/18 12:25 12:25 Creatine Kinase 254 H CK-MB (CK-2) 1.45 Troponin I < 0.012 Impressions: Chest X-Ray 10/28/18 12:29 IMPRESSION: NO ACUTE RADIOGRAPHIC FINDING IN THE CHEST. Guidance Fluoroscopy 10/29/18 00:00 IMPRESSION: SUCCESSFUL PLACEMENT OF A 5 FR DUAL LUMEN 40 CM PICC IN THE LEFT BASILIC VEIN. Interventional Vascular Procedure 10/29/18 00:00 IMPRESSION: SUCCESSFUL PLACEMENT OF A 5 FR DUAL LUMEN 40 CM PICC IN THE LEFT BASILIC VEIN. PICC Line Insertion 10/29/18 00:00 IMPRESSION: SUCCESSFUL PLACEMENT OF A 5 FR DUAL LUMEN 40 CM PICC IN THE LEFT BASILIC VEIN. Status: Imported from PACS Assessment and Plan - Diagnosis (1) Acute renal failure (ARF) Is this a current diagnosis for this admission?: Yes Plan: Prerenal secondary to poor p.o. intake and GI losses. Patient is admitted with a creatinine of 1.67; improved to 1.05 today. Baseline is 0.72. We will continue to provide generous IV fluids. Avoid nephrotoxic medications as able. Daily chemistries. (2) Hypocalcemia Is this a current diagnosis for this admission?: Yes Plan: Corrected to 7.76 Secondary to poor p.o. intake and GI losses. She was provided 1 g calcium gluconate by the ED provider. She is provided an additional IV calcium gluconate 2 g today. Check ionized calcium with AM labs Daily chemistries and continue to replace as indicated. (3) Chronic diarrhea Is this a current diagnosis for this admission?: Yes Plan: Improving Radiation inducted inflammatory colitis Patient admits she started passing formed stool today Patient reports that onset of diarrhea coincides with beginning of radiation treatments. Has been present for 2 months Patient reports few episodes of incontinence because she can't "get to the restroom in time" Reassurance provided. CDIFF PCR and OCCULT STOOL negative No indications for antibiotics at this time. Continue scheduled Immodium (4) Cervical cancer Is this a current diagnosis for this admission?: Yes Plan: Scheduled for final radiation treatment tomorrow (Thursday 11/02) Have consulted Dr. Osborn; management per her expertise. (5) Muscle cramping Is this a current diagnosis for this admission?: Yes Plan: Resolved Secondary to TORI and electrolyte derangement. Management as above. (6) Hyperlipidemia Is this a current diagnosis for this admission?: Yes Plan: Continue home dose statin therapy. (7) Hypertension Qualifiers: Hypertension type: essential hypertension Qualified Code(s): I10 - Essential (primary) hypertension Is this a current diagnosis for this admission?: Yes Plan: Continue home dose metoprolol. - Time Time Spent with patient: 15-24 minutes Medications reviewed and adjusted accordingly: Yes Anticipated discharge: Home Within: Other - when medically stable - Inpatient Certification Based on my medical assessment, after consideration of the patient's comorbidities, presenting symptoms, or acuity I expect that the services needed warrant INPATIENT care.: Yes I certify that my determination is in accordance with my understanding of Medicare's requirements for reasonable and necessary INPATIENT services [42 CFR 412.3e].: Yes Medical Necessity: Significant Comorbidiites Make Outpatient Treatment Too Risky, Need For Continuous Telemetry Monitoring, Risk of Complication if Not Cared For in Hospital
[2018-11-01] MEDS: METOPROLOL TARTRATE 50 MG TABLET PO SCH (21:32)
[2018-11-01] MEDS: SIMVASTATIN 40 MG TABLET PO SCH (21:33)
[2018-11-02] MEDS: HEPARIN SOD (PORCINE) 5,000 UNIT/ML 1 ML SYRINGE SUBCUT SCH ×3 (05:01→21:13)
[2018-11-02] MEDS: LOPERAMIDE HCL 2 MG CAPSULE PO SCH ×2 (05:08→12:33)
[2018-11-02 05:25] LABS: HEMATOCRIT 25.9 % (36.0-47.0); HEMOGLOBIN 8.9 g/dL (12.0-15.5); MEAN CORPUSCULAR HGB CONC 34.3 g/dL (32.0-36.0); MEAN CORPUSCULAR VOLUME 85 fl (80-97); PLATELET COUNT 111 10^3/uL (150-450); RED BLOOD COUNT 3.06 10^6/uL (3.72-5.28); RED CELL DISTRIBUTION WIDTH 13.2 % (11.5-14.0); WHITE BLOOD COUNT 2.3 10^3/uL (4.0-10.5)
[2018-11-02 05:48] LABS: ALANINE AMINOTRANSFERASE 24 U/L (9-52); ALBUMIN 2.8 g/dL (3.5-5.0); ALKALINE PHOSPHATASE 58 U/L (38-126); ANION GAP 6 (5-19); ASPARTATE AMINO TRANSFERASE 19 U/L (14-36); BILIRUBIN,DIRECT 0.2 mg/dL (0.0-0.4); BILIRUBIN,TOTAL 0.3 mg/dL (0.2-1.3); BLOOD UREA NITROGEN 6 mg/dL (7-20); CALCIUM 7.2 mg/dL (8.4-10.2); CARBON DIOXIDE 31 mmol/L (22-30); CHLORIDE 102 mmol/L (98-107); GLUCOSE 96 mg/dL (75-110); PHOSPHORUS 3.4 mg/dL (2.5-4.5); POTASSIUM 4.1 mmol/L (3.6-5.0); SODIUM 138.9 mmol/L (137-145); TOTAL PROTEIN 5.1 g/dL (6.3-8.2)
[2018-11-02] MEDS: NORMAL SALINE 1000 ML 1,000 ML IV PRN ×3 (06:34→21:16)
[2018-11-02] MEDS: POTASSIUM CHLORIDE 10 MEQ CAPSULE.ER PO SCH ×3 (08:13→18:33)
[2018-11-02] MEDS: MAGNESIUM SULFATE/D5W 1 GM/100 ML RTUPB IV SCH ×2 (08:18→09:36)
--- NOTE | 2018-11-02 08:40 | PDOC PROGRESS REPORT ---
Subjective Progress Note for:: 11/02/18 Subjective:: Patient states that she is feeling much better and is anxious to go home. She is scheduled for her last radiation treatment this morning. She is on a scheduled dose of imodium which she has been taking and this seems to be helping. She is still requiring electrolyte replacement. ROS: No dyspnea. No abdominal cramping. Reason For Visit: HYPOKALEMIA,HYPOMAGNESEMIA,TORI,HYPOCALCEMIA Physical Exam Vital Signs: Temp Pulse Resp BP Pulse Ox 98.4 F 83 19 121/62 100 11/02/18 00:22 11/02/18 07:00 11/02/18 00:22 11/02/18 00:22 11/02/18 00:22 Intake & Output 11/01/18 11/02/18 11/03/18 06:59 06:59 06:59 Intake Total 2340 3047 Balance 2340 3047 Weight 103.2 kg 102.2 kg General appearance: PRESENT: no acute distress, obese, well-developed Head exam: PRESENT: normocephalic Respiratory exam: PRESENT: unlabored Neurological exam: PRESENT: alert, awake Psychiatric exam: PRESENT: appropriate affect Skin exam: PRESENT: normal color Results Laboratory Results: 11/02/18 04:54 11/02/18 04:54 11/01/18 11/02/18 11/02/18 09:10 04:54 04:54 WBC 2.3 L RBC 3.06 L Hgb 8.9 L Hct 25.9 L MCV 85 MCH 29.0 MCHC 34.3 RDW 13.2 Plt Count 111 L Sodium 139.1 138.9 Potassium 3.5 L 4.1 Chloride 102 102 Carbon Dioxide 32 H 31 H Anion Gap 5 6 BUN 3 L 6 L Creatinine 1.05 1.08 Est GFR ( Amer) > 60 > 60 Est GFR (Non-Af Amer) 53 L 51 L Glucose 114 H 96 Calcium 6.8 L* 7.2 L Phosphorus 2.9 3.4 Magnesium 0.9 L* 1.6 Total Bilirubin 0.2 0.3 AST 19 19 ALT 21 24 Alkaline Phosphatase 54 58 Total Protein 4.9 L 5.1 L Albumin 2.8 L 2.8 L 10/28/18 12:25 Blood Blood Culture - Final Staphylococcus Epidermidis 10/28/18 10/28/18 12:25 12:25 Creatine Kinase 254 H CK-MB (CK-2) 1.45 Troponin I < 0.012 Impressions: Chest X-Ray 10/28/18 12:29 IMPRESSION: NO ACUTE RADIOGRAPHIC FINDING IN THE CHEST. Guidance Fluoroscopy 10/29/18 00:00 IMPRESSION: SUCCESSFUL PLACEMENT OF A 5 FR DUAL LUMEN 40 CM PICC IN THE LEFT BASILIC VEIN. Interventional Vascular Procedure 10/29/18 00:00 IMPRESSION: SUCCESSFUL PLACEMENT OF A 5 FR DUAL LUMEN 40 CM PICC IN THE LEFT BASILIC VEIN. PICC Line Insertion 10/29/18 00:00 IMPRESSION: SUCCESSFUL PLACEMENT OF A 5 FR DUAL LUMEN 40 CM PICC IN THE LEFT BASILIC VEIN. Assessment & Plan - Diagnosis (1) Cervical cancer Is this a current diagnosis for this admission?: Yes Plan: Last dose of chemo is being held. She will complete external beam radiation today. Further treatment per [facility] as outpatient. (2) Dehydration Is this a current diagnosis for this admission?: Yes (3) Hypokalemia Is this a current diagnosis for this admission?: Yes Plan: Her electrolytes are slowly improving. Continue replacement. (4) Diarrhea Is this a current diagnosis for this admission?: Yes Plan: Most likely due to radiation mucositis in the rectum. Continue RTC scheduled doses of imodium. - Plan Summary Plan Summary: I will continue to follow her with you. Hopefully, she will be ready for discharge soon.
[2018-11-02] MEDS: VENLAFAXINE HCL 75 MG TABLET PO SCH (09:37)
[2018-11-02] MEDS: FAMOTIDINE 20 MG TABLET PO SCH ×2 (09:38→21:12)
[2018-11-02] MEDS: MAGNESIUM OXIDE 400 MG TABLET PO SCH ×2 (09:38→18:34)
[2018-11-02] MEDS: NORMAL SALINE 10 ML SDV (SCHEDULED) IV SCH ×2 (09:39→21:12)
--- NOTE | 2018-11-02 20:46 | PDOC PROGRESS REPORT ---
Subjective Progress Note for:: 11/02/18 Subjective:: COLUMBA RANDALL is a 63 year old female with a past medical history significant for hypertension, hyperlipidemia, morbid obesity, and cervical cancer currently receiving chemo and radiation treatment under the care of Dr. Osborn who presents today with a complaint of 2 months of daily diarrhea bowel movements (greater than 12 each day), poor appetite, nausea, and muscle cramps he was admitted 10/28/2018 for dehydration and associated electrolyte derangements. The patient was seen on rounds. She is resting in bed. She states she feels well today. The patient states she has not had a bowel movement in approx. 24 hours. Her potassium, magnesium still remain low requiring hours of IV electrolyte replacement, but they are considerably higher than the previous days. She received her final radiation treatment today. Plan to discontinue PO Immodium. The patient will remain at [facility] for electrolyte derangements. Likely discharge home tomorrow. Reason For Visit: HYPOKALEMIA,HYPOMAGNESEMIA,TORI,HYPOCALCEMIA Physical Exam Vital Signs: Temp Pulse Resp BP Pulse Ox 98.5 F 103 H 16 106/87 H 99 11/02/18 19:26 11/02/18 19:26 11/02/18 19:26 11/02/18 19:26 11/02/18 19:26 Intake & Output 11/01/18 11/02/18 11/03/18 06:59 06:59 06:59 Intake Total 2340 3047 1993 Balance 2340 3047 1993 Weight 103.2 kg 102.2 kg General appearance: PRESENT: no acute distress, obese Head exam: PRESENT: atraumatic, normocephalic Eye exam: PRESENT: conjunctiva pink, EOMI, PERRLA. ABSENT: scleral icterus Ear exam: PRESENT: normal external ear exam Mouth exam: PRESENT: moist, tongue midline Neck exam: PRESENT: full ROM. ABSENT: carotid bruit, JVD, lymphadenopathy, thyromegaly Respiratory exam: PRESENT: clear to auscultation corazon, symmetrical, unlabored. ABSENT: rales, rhonchi, wheezes Cardiovascular exam: PRESENT: RRR. ABSENT: diastolic murmur, rubs, systolic murmur Pulses: PRESENT: normal radial pulses, normal dorsalis pedis pul Vascular exam: PRESENT: normal capillary refill GI/Abdominal exam: PRESENT: normal bowel sounds, soft. ABSENT: distended, guarding, mass, organolmegaly, rebound, tenderness Rectal exam: PRESENT: deferred Extremities exam: PRESENT: full ROM. ABSENT: calf tenderness, clubbing, pedal edema Musculoskeletal exam: PRESENT: ambulatory Neurological exam: PRESENT: alert, awake, oriented to person, oriented to place, oriented to time, oriented to situation Psychiatric exam: PRESENT: appropriate affect, normal mood Skin exam: PRESENT: dry, intact, warm. ABSENT: cyanosis, rash Results Laboratory Results: 11/02/18 04:54 11/02/18 04:54 11/02/18 11/02/18 04:54 04:54 WBC 2.3 L RBC 3.06 L Hgb 8.9 L Hct 25.9 L MCV 85 MCH 29.0 MCHC 34.3 RDW 13.2 Plt Count 111 L Sodium 138.9 Potassium 4.1 Chloride 102 Carbon Dioxide 31 H Anion Gap 6 BUN 6 L Creatinine 1.08 Est GFR ( Amer) > 60 Est GFR (Non-Af Amer) 51 L Glucose 96 Calcium 7.2 L Phosphorus 3.4 Magnesium 1.6 Total Bilirubin 0.3 AST 19 ALT 24 Alkaline Phosphatase 58 Total Protein 5.1 L Albumin 2.8 L 10/28/18 13:17 Blood Blood Culture - Final NO GROWTH IN 5 DAYS 10/28/18 10/28/18 12:25 12:25 Creatine Kinase 254 H CK-MB (CK-2) 1.45 Troponin I < 0.012 Impressions: Chest X-Ray 10/28/18 12:29 IMPRESSION: NO ACUTE RADIOGRAPHIC FINDING IN THE CHEST. Guidance Fluoroscopy 10/29/18 00:00 IMPRESSION: SUCCESSFUL PLACEMENT OF A 5 FR DUAL LUMEN 40 CM PICC IN THE LEFT BASILIC VEIN. Interventional Vascular Procedure 10/29/18 00:00 IMPRESSION: SUCCESSFUL PLACEMENT OF A 5 FR DUAL LUMEN 40 CM PICC IN THE LEFT B ASILIC VEIN. PICC Line Insertion 10/29/18 00:00 IMPRESSION: SUCCESSFUL PLACEMENT OF A 5 FR DUAL LUMEN 40 CM PICC IN THE LEFT BASILIC VEIN. Status: Imported from PACS Assessment and Plan - Diagnosis (1) Acute renal failure (ARF) Is this a current diagnosis for this admission?: Yes Plan: Prerenal secondary to poor p.o. intake and GI losses. Patient is admitted with a creatinine of 1.67; improved to 1.08 today. Baseline is 0.72. We will continue to provide generous IV fluids. Avoid nephrotoxic medications as able. Daily chemistries. (2) Hypocalcemia Is this a current diagnosis for this admission?: Yes Plan: Resolved Secondary to poor p.o. intake and GI losses. (3) Chronic diarrhea Is this a current diagnosis for this admission?: Yes Plan: Resolved Discontinue scheduled Immodium Radiation inducted inflammatory colitis Patient admits she started passing formed stool yesterday Patient reports that onset of diarrhea coincides with beginning of radiation treatments. Has been present for 2 months Patient reports few episodes of incontinence because she can't "get to the restroom in time" Reassurance provided. CDIFF PCR and OCCULT STOOL negative No indications for antibiotics at this time. (4) Cervical cancer Is this a current diagnosis for this admission?: Yes Plan: Scheduled for final radiation treatment tomorrow (Thursday 11/02) Have consulted Dr. Osborn; management per her expertise. (5) Muscle cramping Is this a current diagnosis for this admission?: Yes Plan: Resolved Secondary to TORI and electrolyte derangement. Management as above. (6) Hyperlipidemia Is this a current diagnosis for this admission?: Yes Plan: Continue home dose statin therapy. (7) Hypertension Qualifiers: Hypertension type: essential hypertension Qualified Code(s): I10 - Essential (primary) hypertension Is this a current diagnosis for this admission?: Yes Plan: Continue home dose metoprolol. - Time Time Spent with patient: 15-24 minutes Medications reviewed and adjusted accordingly: Yes Anticipated discharge: Home Within: within 24 hours - Inpatient Certification Based on my medical assessment, after consideration of the patient's comorbidities, presenting symptoms, or acuity I expect that the services needed warrant INPATIENT care.: Yes I certify that my determination is in accordance with my understanding of Medicare's requirements for reasonable and necessary INPATIENT services [42 CFR 412.3e].: Yes Medical Necessity: Need For IV Fluids, Risk of Complication if Not Cared For in Hospital
[2018-11-02] MEDS: METOPROLOL TARTRATE 50 MG TABLET PO SCH (21:12)
[2018-11-02] MEDS: SIMVASTATIN 40 MG TABLET PO SCH (21:12)
[2018-11-03] MEDS: HEPARIN SOD (PORCINE) 5,000 UNIT/ML 1 ML SYRINGE SUBCUT SCH ×2 (05:04→14:14)
[2018-11-03] MEDS: NORMAL SALINE 1000 ML 1,000 ML IV PRN (05:09)
[2018-11-03 06:31] LABS: ABSOLUTE EOSINOPHILS # (AUTO) 0.1 10^3/uL (0.0-0.6); ABSOLUTE LYMPHOCYTES (AUTO) 0.3 10^3/uL (0.5-4.7); ABSOLUTE MONOCYTES (AUTO) 0.3 10^3/uL (0.1-1.4); ABSOLUTE NEUT (AUTO) 1.6 10^3/uL (1.7-8.2); ALANINE AMINOTRANSFERASE 21 U/L (9-52); ALBUMIN 2.9 g/dL (3.5-5.0); ALKALINE PHOSPHATASE 62 U/L (38-126); ANION GAP 5 (5-19); ASPARTATE AMINO TRANSFERASE 18 U/L (14-36); BASOPHILS % (AUTO) 0.5 % (0-2); BILIRUBIN,DIRECT 0.3 mg/dL (0.0-0.4); BILIRUBIN,TOTAL 0.3 mg/dL (0.2-1.3); BLOOD UREA NITROGEN 7 mg/dL (7-20); CALCIUM 7.7 mg/dL (8.4-10.2); CARBON DIOXIDE 30 mmol/L (22-30); CHLORIDE 102 mmol/L (98-107); EOSINOPHILS % (AUTO) 2.3 % (0-6); GLUCOSE 98 mg/dL (75-110); HEMATOCRIT 26.2 % (36.0-47.0); HEMOGLOBIN 9.1 g/dL (12.0-15.5); LYMPHOCYTES % (AUTO) 11.3 % (13-45); MEAN CORPUSCULAR HEMOGLOBIN 29.4 pg (27.0-33.4); MEAN CORPUSCULAR HGB CONC 34.7 g/dL (32.0-36.0); MEAN CORPUSCULAR VOLUME 85 fl (80-97); MONOCYTES % (AUTO) 14.3 % (3-13); PHOSPHORUS 3.2 mg/dL (2.5-4.5); PLATELET COUNT 121 10^3/uL (150-450); RED BLOOD COUNT 3.09 10^6/uL (3.72-5.28); RED CELL DISTRIBUTION WIDTH 13.3 % (11.5-14.0); SEGMENTED NEUTROPHILS % (AUTO) 71.6 % (42-78); SODIUM 136.7 mmol/L (137-145); TOTAL CELLS COUNTED % (AUTO) 100 %; TOTAL PROTEIN 5.3 g/dL (6.3-8.2); WHITE BLOOD COUNT 2.3 10^3/uL (4.0-10.5)
[2018-11-03] MEDS: POTASSIUM CHLORIDE 10 MEQ CAPSULE.ER PO SCH ×2 (08:26→12:01)
[2018-11-03] MEDS: MAGNESIUM SULFATE/D5W 1 GM/100 ML RTUPB IV SCH ×2 (09:39→11:00)
[2018-11-03] MEDS: MAGNESIUM OXIDE 400 MG TABLET PO SCH (09:39)
[2018-11-03] MEDS: VENLAFAXINE HCL 75 MG TABLET PO SCH (09:39)
[2018-11-03] MEDS: FAMOTIDINE 20 MG TABLET PO SCH (09:39)
[2018-11-03] MEDS: NORMAL SALINE 10 ML SDV (SCHEDULED) IV SCH (12:03)
[2018-11-03 12:29] VITALS: BP 151/68
== END 2018-11-03 14:30 | disposition home or self-care (01) | DRG 683 ==
LOC: ER 12:11 → EH 15:19 → INTOOBSV 15:19 → 4N 18:45 → OBSVTOIN 10-29 09:19
PROVIDERS: ADMIT Internal Medicine; ATTEND Internal Medicine
PROC: 02HV33Z Insertion of Infusion Device into Superior Vena Cava, Percutaneous Approach (ICD-10-PCS; principal; 2018-10-29)
DX: N17.9 Acute kidney failure, unspecified (principal); K92.81 Gastrointestinal mucositis (ulcerative); C53.9 Malignant neoplasm of cervix uteri, unspecified; I10 Essential (primary) hypertension; M19.041 Primary osteoarthritis, right hand; I45.81 Long QT syndrome; E83.42 Hypomagnesemia; E78.5 Hyperlipidemia, unspecified; E66.01 Morbid (severe) obesity due to excess calories; F32.9 Major depressive disorder, single episode, unspecified; F41.1 Generalized anxiety disorder; E86.0 Dehydration; E87.6 Hypokalemia; Y84.2 Radiological procedure and radiotherapy as the cause of abnormal reaction of the patient, or of later complication, without mention of misadventure at the time of the procedure
CPT/HCPCS: 36415; 36569; 71045; 76937; 77001; 80048; 80053; 81001; 82040; 82272; 82330; 82550; 82553; 82803; 82962; 83605; 83690; 83735; 84100; 84443; 84484; 85025; 85027; 85610; 87040; 87077; 87086; 87186; 87493; 93005; 93010; 96361; 96365; 96375; 99285; G0378; J0610; J0696; J1642; J1644; J3475; J3480; J3490; J7030; J7060

== ENCOUNTER → 2019-07-02 | Outpatient (CLI) | payer BC ==
--- NOTE | 2019-07-03 14:15 | RADIOLOGY REPORT (SQ) ---
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 TECHNIQUE: Blood glucose level was verified. Above dose of FDG was injected intravenously. 2-D seg mented attenuation correction images were obtained from the base of the skull to the midthighs. Nonc ontrast CT images were obtained for attenuation correction and fusion with emission images. CT image s were performed without oral or intravenous contrast and are not sensitive for parenchymal lesions. A series of overlapping emission PET images were obtained. Images reviewed and manipulated at [facility] work station by the radiologist. Images stored on PACS. LIMITATIONS: None. FINDINGS: HEAD AND NECK: No areas of abnormal metabolic activity in the soft tissues of the head and neck. CHEST: No areas of abnormal metabolic activity in the chest. ABDOMEN AND PELVIS: No areas of abnormal uptake in the abdomen or pelvis. Physiologic uptake in the GI tract and rectum. PROXIMAL LOWER EXTREMITIES: No areas of abnormal metabolic activity in the soft tissues of the lower extremities. BONES: No abnormal metabolic activity in the visualized skeleton. ADDITIONAL CT FINDINGS: No additional significant findings on the noncontrast CT images. OTHER: No other significant findings. IMPRESSION: Negative PET-CT. TECHNICAL DOCUMENTATION: JOB ID: [id number] 2010 [employer]- All Rights Reserved Reading location - IP/workstation name: [email or web address]
== END ==
LOC: RAD 08:36
PROVIDERS: ATTEND Internal Medicine Hematology & Oncology
DX: C53.9 Malignant neoplasm of cervix uteri, unspecified (principal)
CPT/HCPCS: 78815; A9552

== ENCOUNTER 2019-12-09 11:08 | Emergency (ER) | payer BC ==
--- NOTE | 2019-12-09 11:44 | ER Document Report ---
ED Medical Screen (RME) - General Chief Complaint: Fall Injury Stated Complaint: FALL/FOOT PAIN Time Seen by Provider: 12/09/19 11:42 Primary Care Provider: KATHI MOHR MD [Primary Care Provider] - Follow up as needed Notes: HPI: 64-year-old female presenting for bilateral ankle injury. Patient was stepping off a deck and rolled both ankles. States she cannot weight-bear secondary to the pain. Denies other injuries PHYSICAL EXAMINATION: No visible swelling or tenderness to the bilateral feet but patient with soft tissue swelling to the lateral malleolus region bilateral ankles with tenderness on palpation I have greeted and performed a rapid initial assessment of this patient. A comprehensive ED assessment and evaluation of the patient, analysis of test results and completion of medical decision making process will be conducted by an additional ED providers. TRAVEL OUTSIDE OF THE [place] IN LAST 30 DAYS: No - Related Data Allergies/Adverse Reactions: No Known Allergies Allergy (Verified 12/09/19 11:39) Past Medical History - Past Medical History Cardiac Medical History: Reports: Hx Hypercholesterolemia, Hx Hypertension Denies: Hx Coronary Artery Disease, Hx Heart Attack Pulmonary Medical History: Denies: Hx Asthma, Hx Bronchitis, Hx COPD, Hx Pneumonia Neurological Medical History: Denies: Hx Cerebrovascular Accident, Hx Seizures Renal/ Medical History: Denies: Hx Peritoneal Dialysis Malignancy Medical History: Reports: Hx Cervical Cancer Musculoskeltal Medical History: Reports Hx Arthritis - RIGHT THUMB Psychiatric Medical History: Reports: Hx Depression Past Surgical History: Reports: Hx Tubal Ligation, Other - Cervical and endometrial biopsy, Port placement and removal. - Immunizations Hx Diphtheria, Pertussis, Tetanus Vaccination: No - UNSURE Physical Exam - Vital signs Vitals: Temp Pulse Resp BP Pulse Ox 99 F 83 19 151/81 H 97 12/09/19 11:20 12/09/19 11:20 12/09/19 11:20 12/09/19 11:20 12/09/19 11:20 Course - Vital Signs Vital signs: Temp Pulse Resp BP Pulse Ox 99 F 83 19 151/81 H 97 12/09/19 11:20 12/09/19 11:20 12/09/19 11:20 12/09/19 11:20 12/09/19 11:20 Doctor's Discharge - Discharge Referrals: KATHI MOHR MD [Primary Care Provider] - Follow up as needed
--- NOTE | 2019-12-09 12:26 | RADIOLOGY REPORT (SQ) ---
EXAM DESCRIPTION: ANKLE BILATERAL 3 VIEWS MIN IMAGES COMPLETED DATE/TIME: 12/09/2019 12:18 pm REASON FOR STUDY: fall COMPARISON: None. NUMBER OF VIEWS: Three views. TECHNIQUE: AP, lateral, and oblique radiographic images acquired of the right and left ankle. LIMITATIONS: None. FINDINGS: MINERALIZATION: Normal. BONES: There is a comminuted spiral fracture of the distal right fibula best demonstrated on the late ral projection. On the left there appear to be chronic as wells acute avulsion injuries of the later al malleolus. JOINTS: No joint effusions. SOFT TISSUES: Lateral soft tissue swelling bilaterally. OTHER: No other significant finding. IMPRESSION: 1. Comminuted oblique fracture through the distal fibula best demonstrated on the latera l projection. 2. There appear to be both chronic and acute avulsion fractures of the left lateral malleolus. 3. Bilateral soft tissue edema. TECHNICAL DOCUMENTATION: JOB ID: [id number] 2010 [employer]- All Rights Reserved Reading location - IP/workstation name: [email or web address]
[2019-12-09] MEDS ORDERED: OXYCODONE-ACETAMINOPHEN 5-325 MG TABLET PO ONE (13:42)
--- NOTE | 2019-12-09 14:54 | ER Document Report ---
Entered by TIMOTHY REAVES SCRIBE 12/09/19 1329 Acting as scribe for:JUANCHO TRACEY MD ED Extremity Problem, Lower - General Chief Complaint: Ankle Injury Stated Complaint: FALL/FOOT PAIN Time Seen by Provider: 12/09/19 11:42 Primary Care Provider: KATHI MOHR MD [Primary Care Provider] - Follow up as needed Mode of Arrival: Ambulatory Information source: Patient Notes: This 64 year old female patient presents to the emergency department today with complaints of bilateral ankle pain. Patient states that she fell off a deck that was 6-8 inches high. Patient was wearing flip flops and "heard a crack" in her right ankle. TRAVEL OUTSIDE OF THE [place] IN LAST 30 DAYS: No - Related Data Allergies/Adverse Reactions: No Known Allergies Allergy (Verified 12/09/19 11:39) Home Medications: ... Past Medical History - General Information source: Patient - Social History Smoking Status: Former Smoker - quit in 2001 Cigarette use (# per day): No Chew tobacco use (# tins/day): No Frequency of alcohol use: None Drug Abuse: None Lives with: Family Family History: Reviewed & Not Pertinent Patient has homicidal ideation: No - Past Medical History Cardiac Medical History: Reports: Hx Hypercholesterolemia, Hx Hypertension Malignancy Medical History: Reports: Hx Cervical Cancer - in remission now Musculoskeletal Medical History: Reports Hx Arthritis - RIGHT THUMB, Right hip Psychiatric Medical History: Reports: Hx Depression Past Surgical History: Reports: Hx Gynecologic Surgery - Brachytherapy x4, Hx Tubal Ligation, Other - Cervical and endometrial biopsy, Port placement and removal. - Immunizations Hx Diphtheria, Pertussis, Tetanus Vaccination: No - UNSURE Review of Systems - Review of Systems Constitutional: No symptoms reported EENT: No symptoms reported Cardiovascular: No symptoms reported Respiratory: No symptoms reported Gastrointestinal: No symptoms reported Genitourinary: No symptoms reported Female Genitourinary: No symptoms reported Musculoskeletal: See HPI, Joint pain - bilateral ankle pain Skin: No symptoms reported Hematologic/Lymphatic: No symptoms reported Neurological/Psychological: No symptoms reported -: Yes All other systems reviewed and negative Physical Exam - Vital signs Vitals: Temp Pulse Resp BP Pulse Ox 99 F 83 19 151/81 H 97 12/09/19 11:20 12/09/19 11:20 12/09/19 11:20 12/09/19 11:20 12/09/19 11:20 - Notes Notes: Physical Exam: General: Alert, appears well. HEENT: Normocephalic. Atraumatic. PERRLA. Extraocular movements intact. Oropharynx clear. Neck: Supple. Respiratory: No respiratory distress. Abdominal: Normal Inspection. No distension. Extremities: Swelling of the right ankle with tenderness to palpation of the lateral malleolus. The medial surface of the first metatarsal is tender with palpation. Mild left ankle swelling with tenderness to palpation over the tip of the lateral malleolus on the left. Neurological: Normal cognition. AAOx4. Normal speech. Psychological: Normal affect. Normal Mood. Skin: Warm. Dry. Normal color. Course - Re-evaluation Re-evalutation: 12/09/19 15:07 The posterior ankle splint was placed on the right ankle by the PCT. It fits well and provide stability and comfort. Capillary refill and sensation to the toes is intact. A ankles stirrup type commercial splint was applied to the left ankle. It fits well and provide some stability and comfort. Crutches were fit to the patient with instructions. - Vital Signs Vital signs: Temp Pulse Resp BP Pulse Ox 99 F 83 19 151/81 H 97 12/09/19 11:20 12/09/19 11:20 12/09/19 11:20 12/09/19 11:20 12/09/19 11:20 - Diagnostic Test Radiology reviewed: Image reviewed, Reports reviewed - The right ankle shows a comminuted oblique fracture through the distal fibula. The left ankle shows chronic and acute avulsion fractures of the left lateral malleolus. There is bilateral soft tissue edema. Discharge - Discharge Clinical Impression: Fracture of right ankle, lateral malleolus Qualifiers: Encounter type: initial encounter Fracture type: closed Fracture alignment: displaced Qualified Code(s): S82.61XA - Displaced fracture of lateral malleolus of right fibula, initial encounter for closed fracture Avulsion fracture of lateral malleolus of left fibula Qualifiers: Encounter type: initial encounter Fracture type: closed Qualified Code(s): S82.62XA - Displaced fracture of lateral malleolus of left fibula, initial encounter for closed fracture Condition: Stable Disposition: HOME, SELF-CARE Additional Instructions: Fracture of Distal Fibula You have a fracture at the end of the fibula, the smaller bone in the lower leg. The fracture is across the bony bump on the outer side of the ankle. This fracture will usually heal well, but must be protected from the pull of ligaments and tendons at the ankle. If this fracture rotates out of position (or is felt likely to rotate), it must be operated on. Initially, the extremity should be kept elevated, with ice packs applied frequently. This fracture is usually treated with a cast or walking boot. If a walking boot has been selected, it's critical that it NOT be removed without the doctor's approval, not even for sleeping or baths. Healing of this fracture takes about four to eight weeks. Younger patients heal more quickly. An X-ray is usually required during healing to check for complications and to assess healing. Call the doctor or return at once if there is severe swelling, increasing pain, or numbness in the foot. You have a minor avulsion fracture to the tip of the left lateral malleolus with an ankle sprain. You have a comminuted slightly displaced distal fibula fracture to the right lateral ankle. Keep the splint clean and dry. Elevate your feet all the time. Take the pain medication as needed. Call Dr. Mohan at [facility] for surgery to schedule an appointment this week. RETURN TO THE EMERGENCY ROOM IF ANY NEW OR WORSENING SYMPTOMS. Prescriptions: Oxycodone HCl/Acetaminophen [Percocet 5-325 mg Tablet] 1 tab PO ASDIR PRN #15 tablet PRN Reason: Referrals: KATHI MOHR MD [Primary Care Provider] - Follow up as needed I personally performed the services described in the documentation, reviewed and edited the documentation which was dictated to the scribe in my presence, and it accurately records my words and actions.
[2019-12-09 15:53] VITALS: BP 140/82
== END 2019-12-09 16:00 | disposition home or self-care (01) ==
LOC: ER 11:08
DX: S82.61XA Displaced fracture of lateral malleolus of right fibula, initial encounter for closed fracture (principal); S82.431A Displaced oblique fracture of shaft of right fibula, initial encounter for closed fracture; S82.62XA Displaced fracture of lateral malleolus of left fibula, initial encounter for closed fracture; W17.89XA Other fall from one level to another, initial encounter; Z87.891 Personal history of nicotine dependence; I10 Essential (primary) hypertension; Z85.41 Personal history of malignant neoplasm of cervix uteri
CPT/HCPCS: 99283